=== PATIENT | female | born 1950 | race Caucasian/White ===

== ENCOUNTER → 2017-01-20 | Outpatient (CLI) | payer MEDICARE, BC ==
--- NOTE | 2017-01-20 16:24 | BD ---
EXAMINATION TYPE: MG DEXA axial skeleton. DATE OF EXAM: 01/20/2017 COMPARISON: NONE CLINICAL HISTORY: 66-year-old female postmenopausal screening Height: 5 FT 3 IN Weight: 133 FRAX RISK QUESTIONS: Alcohol (3 or more units per day): NO Family History (Parent hip fracture): NO Glucocorticoids (More than 3mos): YES (Ex: prednisone, prednisolone, methylprednisolone, dexamethasone, and hydrocortisone). History of Fracture in Adulthood: NO Secondary Osteoporosis: 1. Type 1 Diabetes: NO 2. Hyperthyroidism: NO 3. Menopause before 45: NO 4. Malnutrition: NO 5. Chronic liver disease: NO Rheumatoid Arthritis: NO Current Tobacco Use: NO RISK FACTORS HISTORY OF: Active: YES Postmenopausal woman: AGE 50 MEDICATIONS: Prednisone or other steroids: YES How Lon TRANSPLANT PT Thyroid Medications: YES Which medication: SYNTHROID How Lon YRS Additional Medications: SYNTHROID, INSULIN, PREDISONE , ,CELCEPT, SIMVASTATIN, METOPROLOL, SYNTH YOAN , LEAVEMIR,VIT D, GLIMEPIRIDE, WARFARIN,CEPHALEXIN Additional History: KIDNEY TRANSPLANT 2011 AND 1995 EXAM MEASUREMENTS: Bone mineral densitometry was performed using the Influx System. Bone mineral density as measured about the Lumbar spine is: ----- L1-L4(G/cm2): 1.315 T Score Values are as follows: ----- L2: 1.0 ----- L3: 1.5 ----- L4: 2.1 ----- L1-L4: 1.1 BASELINE Bone mineral density about the R hip (g/cm2): 0.729 Bone mineral density about the L hip (g/cm2): 0.671 T Score values are as follows: -----R Neck: -2.2 -----L Neck: -2.6 -----R Total: -2.2 -----L Total: -2.5 BASELINE IMPRESSION: Osteoporosis (T Score less than -2.5) as noted by T Score values at the There is increased fracture risk and therapy is usually indicated based on age. Re-Screen 1-2 years. NOTE: T-SCORE=SD OF THE YOUNG ADULT MEAN.
--- NOTE | 2017-01-21 07:34 | MM ---
Reason for exam: screening (asymptomatic). Last mammogram was performed 3 years and 10 months ago. History: Patient is postmenopausal. Physical Findings: A clinical breast exam by your physician is recommended on an annual basis and results should be correlated with mammographic findings. MG 3D Screening Mammo W/Cad Bilateral CC and MLO view(s) were taken. Prior study comparison: April 05, 2013, bilateral digital screening mammo w/CAD. The breast tissue is extremely dense which could obscure a lesion on mammography. Finding: There are typically benign calcifications in both breasts. No suspicious abnormality. ASSESSMENT: Benign, BI-RAD 2 RECOMMENDATION: Routine screening mammogram of both breasts in 1 year.
== END | disposition home or self-care (01) ==
LOC: RADMAMWWP 09:50
PROVIDERS: ATTEND Family Medicine
DX: Z12.31 Encounter for screening mammogram for malignant neoplasm of breast (principal); M81.0 Age-related osteoporosis without current pathological fracture; Z78.0 Asymptomatic menopausal state
CPT/HCPCS: 77080; 77063; G0202

== ENCOUNTER → 2017-01-20 | Outpatient (CLI) | payer MEDICARE, BC ==
[2017-01-20 10:45] LABS: Basophils # (A) 0.1 k/uL (0-0.2); Basophils % (A) 1 %; CH 26.4; CHCM 29.9; Eosinophils # (A) 0.3 k/uL (0-0.7); Eosinophils % (A) 4 %; HCT 43.1 % (34.0-46.0); HDW 2.14; HGB 12.8 gm/dL (11.4-16.0); Hypochromasia Moderate; Luc # (Auto) 0.27; Luc % (Auto) 3; Lymphocytes # (A) 2.1 k/uL (1.0-4.8); Lymphocytes % (A) 27 %; MCH 26.3 pg (25.0-35.0); MCHC 29.7 g/dL (31.0-37.0); MCV 88.7 fL (80.0-100.0); Mean Platelet Volume 6.6; Monocytes # (A) 0.4 k/uL (0-1.0); Monocytes % (A) 6 %; Neutrophils # (A) 4.6 k/uL (1.3-7.7); Neutrophils % (A) 60 %; RBC 4.85 m/uL (3.80-5.40); RDW 13.7 % (11.5-15.5); WBC 7.8 k/uL (3.8-10.6); WBC (Perox) 7.77
[2017-01-20 10:59] LABS: Anion Gap 12 mmol/L; Blood Urea Nitrogen 26 mg/dL (7-17); Calcium 10.5 mg/dL (8.4-10.2); Carbon Dioxide 29 mmol/L (22-30); Chloride 98 mmol/L (98-107); Glucose 179 mg/dL (74-99); Non-African American GFR(MDRD) >60 (>60 ml/min/1.73 sqM); Phosphorous 3.9 mg/dL (2.5-4.5); Potassium 5.4 mmol/L (3.5-5.1); Sodium 139 mmol/L (137-145); Uric Acid 6.3 mg/dL (3.7-7.4)
[2017-01-20 11:05] LABS: Appearance,Urine Clear (Clear); Bacteria,Urine Rare /hpf; Bilirubin,Urine Negative (Negative); Glucose,Urine (UA) Negative (Negative); Ketones,Urine Negative (Negative); Leukocyte Esterase,Urine Small (Negative); Mucus,Urine Rare /hpf; Nitrite,Urine Negative (Negative); Particle Count 707; Protein,Urine 2+ (Negative); RBC,Urine <1 /hpf (0-5); Specific Gravity,Urine 1.008 (1.001-1.035); Squamous Epithelial Cell,Urine <1 /hpf (0-4); UA Billing (MACRO vs. MICRO) MICRO; Urobilinogen,Urine <2.0 mg/dL (<2.0); WBC,Urine 6 /hpf (0-5)
[2017-01-20 15:25] LABS: Iron Saturation 43.2 (12.00-45.00)
== END | disposition home or self-care (01) ==
LOC: LABWHC1 10:12
PROVIDERS: ATTEND Internal Medicine Nephrology
DX: D64.9 Anemia, unspecified (principal); E55.9 Vitamin D deficiency, unspecified; E21.3 Hyperparathyroidism, unspecified; M10.9 Gout, unspecified; Z94.0 Kidney transplant status
CPT/HCPCS: 36415; 80048; 81001; 82306; 82570; 82728; 83540; 83550; 83735; 83970; 84100; 84156; 84550; 85025

== ENCOUNTER 2017-09-08 08:30 | Inpatient (IN) | payer MEDICARE, BC ==
[2017-09-08] MEDS ORDERED: ONDANSETRON 4 MG/2 ML VIAL IVP STA (08:44)
[2017-09-08] MEDS ORDERED: SODIUM CHLORIDE 0.9% 1,000 ML IV STA ×3 (08:44→09:29)
--- NOTE | 2017-09-08 08:59 | ED ---
GI Bleed HPI - General Chief complaint: GI Bleed Stated complaint: Rectal bleeding Time Seen by Provider: 09/08/17 08:36 Source: patient, RN notes reviewed Mode of arrival: wheelchair Limitations: no limitations - History of Present Illness Initial comments: This is a 66-year-old female who is status post 2 kidney transplants diabetic and a history of a bleeding ulcer 10 years ago states she had the onset of feeling tired over last several weeks she was stopped, by her doctor, from taking statins due to muscle pain but this morning started developing red blood per rectum some nonspecific abdominal pain and upon arrival here nausea. She states she did have some chills he generally does not feel well thus far she states her last kidney is functioning well. MD complaint: gross hematochezia - Related Data Home Medications Medication Instructions Recorded Confirmed Mycophenolate Mofetil [Cellcept] 1,000 mg PO BID 01/24/15 09/08/17 Simvastatin [Zocor] 40 mg PO HS 01/24/15 09/08/17 Warfarin Sodium 4 mg PO SUTUTHSA 01/24/15 09/08/17 predniSONE 5 mg PO DAILY 01/24/15 09/08/17 Insulin Detemir [Levemir] 30 unit SQ HS 11/18/15 09/08/17 Levothyroxine Sodium [Synthroid] 200 mcg PO DAILY 11/18/15 09/08/17 [place]-3 Fatty Acids/Fish Oil [Fish 1 cap PO DAILY 11/18/15 09/08/17 Oil 1,000 mg Softgel] Tacrolimus [Prograf] 1 mg PO TID 11/18/15 09/08/17 Biotin Tab 2 tab PO DAILY 12/30/15 09/08/17 Cholecalciferol [Vitamin D3] 2,000 unit PO DAILY 12/30/15 09/08/17 Warfarin Sodium 6 mg PO MOWEFR 12/30/15 09/08/17 Cranberry 400mg 400 mg PO DAILY 09/08/17 09/08/17 Insulin Aspart [NovoLOG Flexpen] 3 units SQ AC-BRKFST 09/08/17 09/08/17 Insulin Aspart [NovoLOG Flexpen] 6 units SQ AC-LUNCH 09/08/17 09/08/17 Insulin Aspart [NovoLOG Flexpen] 6 units SQ AC-SUPPER 09/08/17 09/08/17 Lisinopril [Zestril] 10 mg PO HS 09/08/17 09/08/17 Metoprolol Tartrate [Lopressor] 25 mg PO DAILY 09/08/17 09/08/17 Allergies Allergy/AdvReac Type Severity Reaction Status Date / Time No Known Allergies Allergy Verified 09/08/17 08:34 Review of Systems ROS Statement: Those systems with pertinent positive or pertinent negative responses have been documented in the HPI. ROS Other: All systems not noted in ROS Statement are negative. Past Medical History Past Medical History: Atrial Fibrillation, Diabetes Mellitus, Hyperlipidemia, Hypertension, Renal Disease, Thyroid Disorder, Vascular Disorder Additional Past Medical History / Comment(s): heart murmer, PVD, hx ulcer, anemia, C-DIFF 01-25-13, neuropathy History of Any Multi-Drug Resistant Organisms: None Reported Date of last positivie culture/infection: 01/25/13 MDRO Source:: pt denies every having cdiff Past Surgical History: Appendectomy, Section, Cholecystectomy, Heart Catheterization, Hysterectomy Additional Past Surgical History / Comment(s): kidney transplant twice right in 1995 and left in 2009, corina cataracts, laser eye surgery for glaucoma and retinopathy, aortogram 11/25/15, 12/31/15 BALOONING /ARTHRECTOMY RT LEG Past Anesthesia/Blood Transfusion Reactions: No Reported Reaction Additional Past Anesthesia/Blood Transfusion Reaction / Comment(s): Pt recieved blood in 1995 withOut reaction. Past Psychological History: No Psychological Hx Reported Smoking Status: Former smoker Past Alcohol Use History: None Reported Past Drug Use History: None Reported - Past Family History Father Family Medical History: COPD Additional Family Medical History / Comment(s): . Mother Family Medical History: Cancer Additional Family Medical History / Comment(s): .. General Exam - General Exam Comments Initial Comments: This is a well-developed well-nourished awake alert but lethargic female Limitations: no limitations General appearance: alert, lethargic Head exam: Present: atraumatic, normocephalic, normal inspection Eye exam: Present: normal appearance, PERRL, EOMI. Absent: scleral icterus, conjunctival injection, periorbital swelling ENT exam: Present: mucous membranes dry Neck exam: Present: normal inspection, full ROM. Absent: tenderness, meningismus, lymphadenopathy Respiratory exam: Present: normal lung sounds bilaterally. Absent: respiratory distress, wheezes, rales, rhonchi, stridor Cardiovascular Exam: Present: regular rate, normal rhythm, normal heart sounds. Absent: systolic murmur, diastolic murmur, rubs, gallop, clicks GI/Abdominal exam: Present: soft, tenderness (Minimal tenderness of the epigastrium. No guarding rebound masses or bruits), normal bowel sounds. Absent: distended, guarding, rebound, rigid Rectal exam: Present: heme (+) stool, other (Small a lot of burgundy-colored stool no masses) Extremities exam: Present: normal inspection, full ROM, normal capillary refill. Absent: tenderness, pedal edema, joint swelling, calf tenderness Back exam: Present: normal inspection Neurological exam: Present: alert, oriented X3, CN II-XII intact Psychiatric exam: Present: normal affect, normal mood Skin exam: Present: warm, dry, intact, normal color. Absent: rash Course Vital Signs 09/08/17 09/08/17 09/08/17 08:32 09:21 09:51 Temperature 97.0 F L Pulse Rate 77 74 80 Respiratory 20 16 16 Rate Blood Pressure 116/51 114/49 135/52 O2 Sat by Pulse 98 96 100 Oximetry 09/08/17 09/08/17 09/08/17 10:17 10:43 10:51 Temperature Pulse Rate 94 86 88 Respiratory 16 Rate Blood Pressure 152/62 O2 Sat by Pulse 100 Oximetry 09/08/17 10:57 Temperature Pulse Rate 84 Respiratory 16 Rate Blood Pressure 108/50 O2 Sat by Pulse 100 Oximetry - Reevaluation(s) Reevaluation #1: 09/08/17 12:08 Patient was noted have a vasovagal episode apparently with syncope lasting a short period time she apparently was moving her heart rate was noted to go down into the 30s. She responded quickly to verbal stimulation. Medical Decision Making - Medical Decision Making I did discuss Pfizer the patient family patient be admitted case was discussed with Dr. Christianson - Lab Data Result diagrams: 09/08/17 09:08 09/08/17 09:08 Lab Results 09/08/17 09/08/17 09/08/17 Range/Units 09:08 09:08 09:08 WBC 8.3 (3.8-10.6) k/uL RBC 2.38 L (3.80-5.40) m/uL Hgb 6.2 L* (11.4-16.0) gm/dL Hct 21.4 L (34.0-46.0) % MCV 90.2 (80.0-100.0) fL MCH 26.1 (25.0-35.0) pg MCHC 28.9 L (31.0-37.0) g/dL RDW 14.5 (11.5-15.5) % Plt Count 302 (150-450) k/uL Neutrophils % 71 % Lymphocytes % 18 % Monocytes % 5 % Eosinophils % 2 % Basophils % 0 % Neutrophils # 5.9 (1.3-7.7) k/uL Lymphocytes # 1.5 (1.0-4.8) k/uL Monocytes # 0.4 (0-1.0) k/uL Eosinophils # 0.2 (0-0.7) k/uL Basophils # 0.0 (0-0.2) k/uL Hypochromasia Marked APTT (22.0-30.0) sec Sodium 130 L (137-145) mmol/L Potassium 6.8 H* (3.5-5.1) mmol/L Chloride 99 (98-107) mmol/L Carbon Dioxide 17 L (22-30) mmol/L Anion Gap 14 mmol/L BUN 60 H (7-17) mg/dL Creatinine 0.87 (0.52-1.04) mg/dL Est GFR (CKD-EPI)AfAm 79 (>60 ml/min/1.73 sqM) Est GFR (CKD-EPI)NonAf 69 (>60 ml/min/1.73 sqM) Glucose 636 H* (74-99) mg/dL POC Glucose (mg/dL) (75-99) mg/dL POC Glu Linen Room Custodian ID Plasma Lactic Acid Duran (0.7-2.0) mmol/L Calcium 9.3 (8.4-10.2) mg/dL Magnesium 1.8 (1.6-2.3) mg/dL Total Bilirubin 0.3 (0.2-1.3) mg/dL AST 22 (14-36) U/L ALT 32 (9-52) U/L Alkaline Phosphatase 116 (38-126) U/L Total Creatine Kinase 34 (30-135) U/L CK-MB (CK-2) <0.2 (0.0-2.4) ng/mL CK-MB (CK-2) Rel Index Troponin I <0.012 (0.000-0.034) ng/mL Total Protein 5.0 L (6.3-8.2) g/dL Albumin 3.1 L (3.5-5.0) g/dL Lipase 183 (23-300) U/L Stool Occult Blood (Negative) Acetone, Qual (Negative) Blood Type Blood Type Recheck Antibody Screen Crossmatch Spec Expiration Date 09/08/17 09/08/17 09/08/17 Range/Units 09:08 09:08 09:08 WBC (3.8-10.6) k/uL RBC (3.80-5.40) m/uL Hgb (11.4-16.0) gm/dL Hct (34.0-46.0) % MCV (80.0-100.0) fL MCH (25.0-35.0) pg MCHC (31.0-37.0) g/dL RDW (11.5-15.5) % Plt Count (150-450) k/uL Neutrophils % % Lymphocytes % % Monocytes % % Eosinophils % % Basophils % % Neutrophils # (1.3-7.7) k/uL Lymphocytes # (1.0-4.8) k/uL Monocytes # (0-1.0) k/uL Eosinophils # (0-0.7) k/uL Basophils # (0-0.2) k/uL Hypochromasia APTT 34.6 H (22.0-30.0) sec Sodium (137-145) mmol/L Potassium (3.5-5.1) mmol/L Chloride (98-107) mmol/L Carbon Dioxide (22-30) mmol/L Anion Gap mmol/L BUN (7-17) mg/dL Creatinine (0.52-1.04) mg/dL Est GFR (CKD-EPI)AfAm (>60 ml/min/1.73 sqM) Est GFR (CKD-EPI)NonAf (>60 ml/min/1.73 sqM) Glucose (74-99) mg/dL POC Glucose (mg/dL) (75-99) mg/dL POC Glu Linen Room Custodian ID Plasma Lactic Acid Duran 1.4 (0.7-2.0) mmol/L Calcium (8.4-10.2) mg/dL Magnesium (1.6-2.3) mg/dL Total Bilirubin (0.2-1.3) mg/dL AST (14-36) U/L ALT (9-52) U/L Alkaline Phosphatase (38-126) U/L Total Creatine Kinase (30-135) U/L CK-MB (CK-2) (0.0-2.4) ng/mL CK-MB (CK-2) Rel Index Troponin I (0.000-0.034) ng/mL Total Protein (6.3-8.2) g/dL Albumin (3.5-5.0) g/dL Lipase (23-300) U/L Stool Occult Blood (Negative) Acetone, Qual (Negative) Blood Type O Positive Blood Type Recheck No Antibody Screen NEGATIVE Crossmatch See Detail Spec Expiration Date 09/11/2017 - 230709/08/17 09/08/17 09/08/17 Range/Units 09:08 09:25 09:25 WBC (3.8-10.6) k/uL RBC (3.80-5.40) m/uL Hgb (11.4-16.0) gm/dL Hct (34.0-46.0) % MCV (80.0-100.0) fL MCH (25.0-35.0) pg MCHC (31.0-37.0) g/dL RDW (11.5-15.5) % Plt Count (150-450) k/uL Neutrophils % % Lymphocytes % % Monocytes % % Eosinophils % % Basophils % % Neutrophils # (1.3-7.7) k/uL Lymphocytes # (1.0-4.8) k/uL Monocytes # (0-1.0) k/uL Eosinophils # (0-0.7) k/uL Basophils # (0-0.2) k/uL Hypochromasia APTT (22.0-30.0) sec Sodium (137-145) mmol/L Potassium (3.5-5.1) mmol/L Chloride (98-107) mmol/L Carbon Dioxide (22-30) mmol/L Anion Gap mmol/L BUN (7-17) mg/dL Creatinine (0.52-1.04) mg/dL Est GFR (CKD-EPI)AfAm (>60 ml/min/1.73 sqM) Est GFR (CKD-EPI)NonAf (>60 ml/min/1.73 sqM) Glucose (74-99) mg/dL POC Glucose (mg/dL) >600 H >600 H (75-99) mg/dL POC Glu Linen Room Custodian ID Wiseheart, Natasha Wiseheart, Natasha Plasma Lactic Acid Duran (0.7-2.0) mmol/L Calcium (8.4-10.2) mg/dL Magnesium (1.6-2.3) mg/dL Total Bilirubin (0.2-1.3) mg/dL AST (14-36) U/L ALT (9-52) U/L Alkaline Phosphatase (38-126) U/L Total Creatine Kinase (30-135) U/L CK-MB (CK-2) (0.0-2.4) ng/mL CK-MB (CK-2) Rel Index Troponin I (0.000-0.034) ng/mL Total Protein (6.3-8.2) g/dL Albumin (3.5-5.0) g/dL Lipase (23-300) U/L Stool Occult Blood (Negative) Acetone, Qual Positive (Negative) Blood Type Blood Type Recheck Antibody Screen Crossmatch Spec Expiration Date 09/08/17 09/08/17 09/08/17 Range/Units 09:56 10:36 10:37 WBC (3.8-10.6) k/uL RBC (3.80-5.40) m/uL Hgb (11.4-16.0) gm/dL Hct (34.0-46.0) % MCV (80.0-100.0) fL MCH (25.0-35.0) pg MCHC (31.0-37.0) g/dL RDW (11.5-15.5) % Plt Count (150-450) k/uL Neutrophils % % Lymphocytes % % Monocytes % % Eosinophils % % Basophils % % Neutrophils # (1.3-7.7) k/uL Lymphocytes # (1.0-4.8) k/uL Monocytes # (0-1.0) k/uL Eosinophils # (0-0.7) k/uL Basophils # (0-0.2) k/uL Hypochromasia APTT (22.0-30.0) sec Sodium (137-145) mmol/L Potassium (3.5-5.1) mmol/L Chloride (98-107) mmol/L Carbon Dioxide (22-30) mmol/L Anion Gap mmol/L BUN (7-17) mg/dL Creatinine (0.52-1.04) mg/dL Est GFR (CKD-EPI)AfAm (>60 ml/min/1.73 sqM) Est GFR (CKD-EPI)NonAf (>60 ml/min/1.73 sqM) Glucose (74-99) mg/dL POC Glucose (mg/dL) >600 H >600 H (75-99) mg/dL POC Glu Linen Room Custodian ID Wiseheart, Natasha Wiseheart, Natasha Plasma Lactic Acid Duran (0.7-2.0) mmol/L Calcium (8.4-10.2) mg/dL Magnesium (1.6-2.3) mg/dL Total Bilirubin (0.2-1.3) mg/dL AST (14-36) U/L ALT (9-52) U/L Alkaline Phosphatase (38-126) U/L Total Creatine Kinase (30-135) U/L CK-MB (CK-2) (0.0-2.4) ng/mL CK-MB (CK-2) Rel Index Troponin I (0.000-0.034) ng/mL Total Protein (6.3-8.2) g/dL Albumin (3.5-5.0) g/dL Lipase (23-300) U/L Stool Occult Blood Positive H (Negative) Acetone, Qual (Negative) Blood Type Blood Type Recheck Antibody Screen Crossmatch Spec Expiration Date 09/08/17 Range/Units 11:37 WBC (3.8-10.6) k/uL RBC (3.80-5.40) m/uL Hgb (11.4-16.0) gm/dL Hct (34.0-46.0) % MCV (80.0-100.0) fL MCH (25.0-35.0) pg MCHC (31.0-37.0) g/dL RDW (11.5-15.5) % Plt Count (150-450) k/uL Neutrophils % % Lymphocytes % % Monocytes % % Eosinophils % % Basophils % % Neutrophils # (1.3-7.7) k/uL Lymphocytes # (1.0-4.8) k/uL Monocytes # (0-1.0) k/uL Eosinophils # (0-0.7) k/uL Basophils # (0-0.2) k/uL Hypochromasia APTT (22.0-30.0) sec Sodium (137-145) mmol/L Potassium (3.5-5.1) mmol/L Chloride (98-107) mmol/L Carbon Dioxide (22-30) mmol/L Anion Gap mmol/L BUN (7-17) mg/dL Creatinine (0.52-1.04) mg/dL Est GFR (CKD-EPI)AfAm (>60 ml/min/1.73 sqM) Est GFR (CKD-EPI)NonAf (>60 ml/min/1.73 sqM) Glucose (74-99) mg/dL POC Glucose (mg/dL) 598 H (75-99) mg/dL POC Glu Linen Room Custodian ID Kallie Ngo Plasma Lactic Acid Duran (0.7-2.0) mmol/L Calcium (8.4-10.2) mg/dL Magnesium (1.6-2.3) mg/dL Total Bilirubin (0.2-1.3) mg/dL AST (14-36) U/L ALT (9-52) U/L Alkaline Phosphatase (38-126) U/L Total Creatine Kinase (30-135) U/L CK-MB (CK-2) (0.0-2.4) ng/mL CK-MB (CK-2) Rel Index Troponin I (0.000-0.034) ng/mL Total Protein (6.3-8.2) g/dL Albumin (3.5-5.0) g/dL Lipase (23-300) U/L Stool Occult Blood (Negative) Acetone, Qual (Negative) Blood Type Blood Type Recheck Antibody Screen Crossmatch Spec Expiration Date - Radiology Data Radiology results: report reviewed (Evidence a left basilar atelectasis in light of the patient being afebrile and normal white count less likely this is an infiltrate.), image reviewed Critical Care Time Critical Care Time: Yes Critical Care Time: 43 minutes of critical care time which includes the patient with history physical labs x-rays several reevaluation of the patient discussed with the patient family regarding findings discussed with the admitting physician admission orders and documentation of the above Disposition Clinical Impression: GI bleeding, Hematochezia, Diabetic ketoacidosis, Anemia, Vasovagal episode Disposition: ADMITTED IP TO THIS [facility] Condition: Serious Referrals: Quynh Mcguire MD [Primary Care Provider] - 1-2 days
[2017-09-08 09:29] LABS: Basophils % (A) 0 %; Eosinophils # (A) 0.2 k/uL (0-0.7); Eosinophils % (A) 2 %; HCT 21.4 % (34.0-46.0); Hypochromasia Marked; Lymphocytes # (A) 1.5 k/uL (1.0-4.8); Lymphocytes % (A) 18 %; MCH 26.1 pg (25.0-35.0); MCHC 28.9 g/dL (31.0-37.0); MCV 90.2 fL (80.0-100.0); Monocytes # (A) 0.4 k/uL (0-1.0); Monocytes % (A) 5 %; Neutrophils # (A) 5.9 k/uL (1.3-7.7); Neutrophils % (A) 71 %; Platelet Count 302 k/uL (150-450); RBC 2.38 m/uL (3.80-5.40); RDW 14.5 % (11.5-15.5); WBC 8.3 k/uL (3.8-10.6)
[2017-09-08 09:30] LABS: Glucose,Whole Blood >600 mg/dL (75-99)
[2017-09-08 09:34] LABS: Albumin 3.1 g/dL (3.5-5.0); Calcium 9.3 mg/dL (8.4-10.2); Magnesium 1.8 mg/dL (1.6-2.3); Total Bilirubin 0.3 mg/dL (0.2-1.3)
[2017-09-08 09:35] LABS: HGB 6.2 gm/dL (11.4-16.0)
[2017-09-08 09:44] LABS: Potassium 6.8 mmol/L (3.5-5.1)
[2017-09-08 09:56] LABS: Creatine Kinase 34 U/L (30-135)
[2017-09-08 10:08] LABS: Creatine Kinase MB <0.2 ng/mL (0.0-2.4); Troponin I <0.012 ng/mL (0.000-0.034)
--- NOTE | 2017-09-08 10:10 | XR ---
EXAMINATION TYPE: XR abdomen acute w cxr DATE OF EXAM: 09/08/2017 CLINICAL HISTORY: Diarrhea and blood in stool. Pain. TECHNIQUE: Single frontal view of chest is obtained. Supine and upright views of the abdomen are acq uired. COMPARISON: Chest x-ray January 24, 2015. CT abdomen and pelvis January 24, 2015. FINDINGS: There is chronic parenchymal change with new patchy left basilar opacity difficult to exclu de as there is some silhouetting of left heart border. Right lung is clear. No pleural effusion or pn eumothorax seen bilaterally. Cardiac silhouette size appears within normal limits. Osseous structur es remain demineralized. Gas is noted in nondistended small bowel loops. Scattered gas is seen in nondistended colon. Extensiv e Vascular calcification overlies lower abdomen to pelvis and bilateral groin. No pneumoperitoneum is seen. Osseous structures are intact. IMPRESSION: 1. Chronic changes with possible developing patchy left basilar atelectasis and/or infiltrate. Consid er progress two-view chest x-ray. 2. Overall nonspecific but likely nonobstructive bowel gas pattern.
[2017-09-08] MEDS ORDERED: INSULIN REGULAR 100 UNIT/ML VIAL IV ONE (10:29)
[2017-09-08] MEDS ORDERED: ALBUTEROL NEBULIZED 2.5 MG/3 ML INHALATION STA (10:29)
[2017-09-08 10:44] LABS: Glucose,Whole Blood >600 mg/dL (75-99)
[2017-09-08 10:44] LABS: Glucose,Whole Blood >600 mg/dL (75-99)
[2017-09-08 11:40] LABS: Glucose,Whole Blood 598 mg/dL (75-99)
[2017-09-08] MEDS ORDERED: NALOXONE 0.4 MG/ML 1 ML VIAL IV PRN (12:23)
[2017-09-08] MEDS ORDERED: INSULIN REGULAR BOLUS (FROM DRIP BAG) IV ONE (12:27)
[2017-09-08] MEDS ORDERED: Potassium Replacement Protocol 1 EACH MISC MISCELLANE PRN (12:27)
[2017-09-08] MEDS ORDERED: Magnesium Replacement Protocol 1 EACH MISC MISCELLANE PRN ×2 (12:27→16:29)
[2017-09-08] MEDS: INSULIN REGULAR 100 UNIT in SODIUM CHLORIDE 0.9% 100 ML IV SCH (13:26)
[2017-09-08 13:31] LABS: Glucose,Whole Blood 519 mg/dL (75-99)
[2017-09-08 13:49] LABS: Glucose,Whole Blood 500 mg/dL (75-99)
[2017-09-08] MEDS: SODIUM CHLORIDE 0.9% 1,000 ML IV SCH ×4 (13:56→19:15)
[2017-09-08 14:09] VITALS: BMI 22.3
[2017-09-08] MEDS ORDERED: SODIUM CHLORIDE 0.9% 1,000 ML IV ONE ×2 (14:09→14:11)
[2017-09-08 14:36] LABS: INR 2.6 (<1.2); Prothrombin Time 23.6 sec (9.0-12.0)
[2017-09-08] MEDS ORDERED: PHYTONADIONE 5 MG in SODIUM CHLORIDE 0.9% 50 ML IVPB STA (14:46)
[2017-09-08 14:53] LABS: Glucose,Whole Blood 397 mg/dL (75-99)
[2017-09-08 15:07] LABS: HCT 22.1 % (34.0-46.0); Hypochromasia Moderate; MCH 27.5 pg (25.0-35.0); MCHC 31.2 g/dL (31.0-37.0); MCV 88.3 fL (80.0-100.0); Mean Platelet Volume 7.2; Platelet Count 281 k/uL (150-450); RDW 14.6 % (11.5-15.5); WBC 8.9 k/uL (3.8-10.6)
[2017-09-08 15:09] LABS: HGB 6.9 gm/dL (11.4-16.0)
--- NOTE | 2017-09-08 15:20 | P.HPIM ---
History of Present Illness H&P Date: 09/08/17 Chief Complaint: GI bleed 66 years old female patient of Dr. Johns past medical history of atrial fibrillation, type 2 diabetes, hyperlipidemia, hypertension and history of renal transplant times 06/13/1995 and 2009, thyroid disorder peripheral vascular disorder, history of peptic ulcer disease 10 years ago comes in with feeling of tiredness past several weeks. Patient was seen by Dr. Johns and myself arm in the clinic where she was complaining of some bilateral hip pain associated with anterior high pain. Simvastatin was discontinued for concern of myositis. Patient states it did not improve her muscle aches. She states she's been having diarrhea for the past few weeks but today she had bright red blood through the rectum with increasing blood sugars with no improvement on taking insulin. Patient came to ER and was found to have a glucose of 600 and hemoglobin of 6.2 a drop from 12. INR 2.6, potassium 6.8, normal troponin fecal occult positive acetone positive normal LFTs. During evaluation ED patient had a presyncope event. Her heart rate dropped into the low 30s. Patient was admitted to the ICU. She received 1 L of IV fluid in the ER. Evidently ordered another 2 L of IV fluid to correct diabetes ketoacidosis. 1 unit of PRBC ordered. Repeat hemoglobin checked later during the evening evening. I think patient would benefit from a dose of calcium gluconate as patient has hyperlipidemia with an episode of bradycardia. Repeat CBC, CMP, magnesium. Vitals are stable with blood pressure of 117/70. Protonix 40 IV twice a day. INR 2 with reverse with vitamin K 5 mg. Hold Coumadin Review of Systems Constitutional: Denies chills, Denies fever, endorses lethargy, endorses malaise, Denies poor appetite, Denies weakness, Denies weight loss Eyes: denies decreased vision, denies diplopia, denies discharge, denies pain Ears: deny: decreased hearing Ears, nose, mouth and throat: Denies dental pain, Denies headache, Denies nasal discharge, Denies nose pain Cardiovascular: Denies chest pain, Denies decreased exercise tolerance, Denies edema, Denies high blood pressure, Denies irregular heart beat, Denies palpitations, Denies paroxysmal nocturnal dyspnea, Denies rapid heart beat, Denies shortness of breath Respiratory: Denies congestion, Denies cough, Denies cough with sputum, Denies dyspnea, Denies home oxygen, Denies wheezing Gastrointestinal: Endorses abdominal pain, endorses diarrhea Denies change in bowel habits, Denies coffee ground emesis, Denies early satiety, Denies excessive gas, Denies heartburn, Denies hematemesis, endorses hematochezia, Denies loss of appetite, Denies nausea, Denies vomiting Genitourinary: Denies dysuria, Denies flank pain, Denies kidney stones, Denies menorrhagia, Denies urgency, Denies urinary frequency Musculoskeletal: Denies gait dysfunction, Denies limitation of motion, Denies morning stiffness, Denies muscle cramps Integumentary: Denies rash, Denies wounds, Denies brittle nails, Denies change in hair/nails, Denies darkening of skin Neurological: Denies balance difficulties, Denies change in speech, Denies double vision, Denies gait dysfunction, Denies loss of vision, Denies motor disturbance, Denies numbness, Denies paralysis, Denies paresthesias, Denies seizures Psychiatric: Denies anxiety, Denies depression Endocrine: Denies excessive sweating, Denies excessive thirst, Denies high blood sugars, Denies palpitations Hematologic/Lymphatic: Denies easy bruising, Denies lymphadenopathy Past Medical History Past Medical History: Atrial Fibrillation, Diabetes Mellitus, Eye Disorder, GERD /Reflux, Hyperlipidemia, Hypertension, Renal Disease, Thyroid Disorder, Vascular Disorder Additional Past Medical History / Comment(s): IDDM type II, bilateral diabetic neuropathy bilateral feet, PAD, renal failure with kidney transplant twice- prior to transplants was on hemodialysis, anemia, afib once in her life associated with an illness, murmur, PUD-bleeding many years ago, bilateral eyes glaucoma and diabetic retinopathy, frequent UTIs-daily antibiiotic use, hypothyroid. History of Any Multi-Drug Resistant Organisms: None Reported Date of last positivie culture/infection: 01/25/13 MDRO Source:: pt denies every having cdiff Past Surgical History: Appendectomy, Section, Cholecystectomy, Heart Catheterization, Hysterectomy Additional Past Surgical History / Comment(s): kidney transplant twice right in 1995 and left in 2009, corina cataracts with lens implants, laser eye surgery for glaucoma and retinopathy, aortogram 11/25/15, 12/31/15 R LEG FEMORAL POPLITEAL BALOONING /ARTHRECTOMY, COLONOSCOPY, NONFUNCTIONING HEMODIALYSIS SHUNT L ARM, Past Anesthesia/Blood Transfusion Reactions: No Reported Reaction Additional Past Anesthesia/Blood Transfusion Reaction / Comment(s): Pt recieved blood in 1995 without reaction. Smoking Status: Former smoker - Past Family History Father Family Medical History: COPD Additional Family Medical History / Comment(s): . Mother Family Medical History: Cancer Additional Family Medical History / Comment(s): Mother had melanoma Medications and Allergies Home Medications Medication Instructions Recorded Confirmed Type Mycophenolate Mofetil [Cellcept] 1,000 mg PO BID 01/24/15 09/08/17 History Simvastatin [Zocor] 40 mg PO HS 01/24/15 09/08/17 History Warfarin Sodium 4 mg PO SUTUTHSA 01/24/15 09/08/17 History predniSONE 5 mg PO DAILY 01/24/15 09/08/17 History Insulin Detemir [Levemir] 30 unit SQ HS 11/18/15 09/08/17 History Levothyroxine Sodium [Synthroid] 200 mcg PO DAILY 11/18/15 09/08/17 History [place]-3 Fatty Acids/Fish Oil [Fish 1 cap PO DAILY 11/18/15 09/08/17 History Oil 1,000 mg Softgel] Tacrolimus [Prograf] 1 mg PO TID 11/18/15 09/08/17 History Biotin Tab 2 tab PO DAILY 12/30/15 09/08/17 History Cholecalciferol [Vitamin D3] 2,000 unit PO DAILY 12/30/15 09/08/17 History Warfarin Sodium 6 mg PO MOWEFR 12/30/15 09/08/17 History Cranberry 400mg 400 mg PO DAILY 09/08/17 09/08/17 History Insulin Aspart [NovoLOG Flexpen] 3 units SQ AC-BRKFST 09/08/17 09/08/17 History Insulin Aspart [NovoLOG Flexpen] 6 units SQ AC-LUNCH 09/08/17 09/08/17 History Insulin Aspart [NovoLOG Flexpen] 6 units SQ AC-SUPPER 09/08/17 09/08/17 History Lisinopril [Zestril] 10 mg PO HS 09/08/17 09/08/17 History Metoprolol Tartrate [Lopressor] 25 mg PO DAILY 09/08/17 09/08/17 History Allergies Allergy/AdvReac Type Severity Reaction Status Date / Time No Known Allergies Allergy Verified 09/08/17 08:34 Physical Exam Vitals: Vital Signs Temp Pulse Resp BP Pulse Ox 09/08/17 14:15 87 22 106/46 100 09/08/17 14:00 90 31 H 117/70 100 09/08/17 13:30 98.5 F 87 16 108/48 100 09/08/17 13:06 97.7 F 82 16 114/56 100 09/08/17 12:36 98.0 F 87 16 111/59 100 09/08/17 12:26 97.8 F 86 16 119/45 100 09/08/17 10:57 84 16 108/50 100 09/08/17 10:51 88 09/08/17 10:43 86 09/08/17 10:17 94 16 152/62 100 09/08/17 09:51 80 16 135/52 100 09/08/17 09:21 74 16 114/49 96 09/08/17 08:32 97.0 F L 77 20 116/51 98 Intake and Output 09/08/17 09/08/17 09/08/17 06:59 14:59 22:59 Intake Total 2.678 Balance 2.678 Intake: Intake, IV Titration 2.678 Amount Insulin Regular 100 unit 2.678 In Sodium Chloride 0.9% 100 ml @ 0.1 UNITS/KG/HR 5.95 mls/hr IV .[id number] [facility] Rx#:[id number] Blood Product 0 Rc As-1 Unit 0 [id number] Other: Weight 58.967 kg - Constitutional General appearance: cooperative, no acute distress, thin-appearing - EENT Eyes: anicteric sclerae, PERRLA, normal appearance ENT: hearing grossly normal - Neck Neck: no lymphadenopathy, normal ROM, no other, no rigidity, no stridor, no thyromegaly - Respiratory Respiratory: bilateral: CTA, negative: diminished, dullness, rales, rhonchi - Cardiovascular Rhythm: regular Heart sounds: normal: S1, S2 Abnormal Heart Sounds: no systolic murmur, no diastolic murmur, no rub, no S3 Gallop, no S4 Gallop, no click, no other - Gastrointestinal General gastrointestinal: normal bowel sounds, soft, tender in the epigastric area, nondistended normal bowel sounds - Integumentary Integumentary: no rash - Neurologic Neurologic: CNII-XII intact - Musculoskeletal Musculoskeletal: strength equal bilaterally - Psychiatric Psychiatric: A&O x's 3, appropriate affect Results CBC & Chem 7: 09/08/17 09:08 09/08/17 09:08 Labs: Abnormal Lab Results - Last 24 Hours (Table) 09/08/17 09/08/17 09/08/17 Range/Units 09:08 09:08 09:08 RBC 2.38 L (3.80-5.40) m/uL Hgb 6.2 L* (11.4-16.0) gm/dL Hct 21.4 L (34.0-46.0) % MCHC 28.9 L (31.0-37.0) g/dL PT (9.0-12.0) sec INR (<1.2) APTT 34.6 H (22.0-30.0) sec Sodium 130 L (137-145) mmol/L Potassium 6.8 H* (3.5-5.1) mmol/L Carbon Dioxide 17 L (22-30) mmol/L BUN 60 H (7-17) mg/dL Glucose 636 H* (74-99) mg/dL POC Glucose (mg/dL) (75-99) mg/dL Total Protein 5.0 L (6.3-8.2) g/dL Albumin 3.1 L (3.5-5.0) g/dL Stool Occult Blood (Negative) Crossmatch 09/08/17 09/08/17 09/08/17 Range/Units 09:08 09:08 09:25 RBC (3.80-5.40) m/uL Hgb (11.4-16.0) gm/dL Hct (34.0-46.0) % MCHC (31.0-37.0) g/dL PT 23.6 H (9.0-12.0) sec INR 2.6 H (<1.2) APTT (22.0-30.0) sec Sodium (137-145) mmol/L Potassium (3.5-5.1) mmol/L Carbon Dioxide (22-30) mmol/L BUN (7-17) mg/dL Glucose (74-99) mg/dL POC Glucose (mg/dL) >600 H (75-99) mg/dL Total Protein (6.3-8.2) g/dL Albumin (3.5-5.0) g/dL Stool Occult Blood (Negative) Crossmatch See Detail 09/08/17 09/08/17 09/08/17 Range/Units 09:25 09:56 10:36 RBC (3.80-5.40) m/uL Hgb (11.4-16.0) gm/dL Hct (34.0-46.0) % MCHC (31.0-37.0) g/dL PT (9.0-12.0) sec INR (<1.2) APTT (22.0-30.0) sec Sodium (137-145) mmol/L Potassium (3.5-5.1) mmol/L Carbon Dioxide (22-30) mmol/L BUN (7-17) mg/dL Glucose (74-99) mg/dL POC Glucose (mg/dL) >600 H >600 H (75-99) mg/dL Total Protein (6.3-8.2) g/dL Albumin (3.5-5.0) g/dL Stool Occult Blood Positive H (Negative) Crossmatch 09/08/17 09/08/17 09/08/17 Range/Units 10:37 11:37 13:20 RBC (3.80-5.40) m/uL Hgb (11.4-16.0) gm/dL Hct (34.0-46.0) % MCHC (31.0-37.0) g/dL PT (9.0-12.0) sec INR (<1.2) APTT (22.0-30.0) sec Sodium (137-145) mmol/L Potassium (3.5-5.1) mmol/L Carbon Dioxide (22-30) mmol/L BUN (7-17) mg/dL Glucose (74-99) mg/dL POC Glucose (mg/dL) >600 H 598 H 519 H (75-99) mg/dL Total Protein (6.3-8.2) g/dL Albumin (3.5-5.0) g/dL Stool Occult Blood (Negative) Crossmatch 09/08/17 09/08/17 Range/Units 13:47 14:51 RBC (3.80-5.40) m/uL Hgb (11.4-16.0) gm/dL Hct (34.0-46.0) % MCHC (31.0-37.0) g/dL PT (9.0-12.0) sec INR (<1.2) APTT (22.0-30.0) sec Sodium (137-145) mmol/L Potassium (3.5-5.1) mmol/L Carbon Dioxide (22-30) mmol/L BUN (7-17) mg/dL Glucose (74-99) mg/dL POC Glucose (mg/dL) 500 H 397 H (75-99) mg/dL Total Protein (6.3-8.2) g/dL Albumin (3.5-5.0) g/dL Stool Occult Blood (Negative) Crossmatch Thrombosis Risk Factor Assmnt - DVT/VTE Prophylaxis DVT/VTE Prophylaxis: Mechanical Prophylaxis ordered - Choose All That Apply Any of the Below Risk Factors Present?: Yes Other Risk Factors: Yes Each Risk Factor Represents 2 Points: Age 61-74 years Other congenital or acquired thrombophilia - If yes, enter type in comment: No Thrombosis Risk Factor Assessment Total Risk Factor Score: 2 Thrombosis Risk Factor Assessment Level: Low Risk Assessment and Plan Plan: 1. Diabetic ketoacidosis. Admit the patient to the intensive care unit, continue IV fluid resuscitation. Status post 1 L of IV fluid. I have ordered in January 2 liters of IV fluid followed by fluids at 1 25 mL per hour. Continue insulin drip per DKA protocol, switch the IV fluid to D5 half-normal saline when her blood glucose levels around 250, and transition the patient from insulin drip and to Levemir per sliding scale 2. Acute GI bleed likely secondary to peptic ulcer disease as patient has history of peptic ulcer disease with coagulopathy on Coumadin. Continue Protonix 40 mg IV twice a day. Hemoglobin every 6 hours. Status post 1 unit PRBC stop 3. Hyperkalemia status post 1 g calcium gluconate. With glucose coming down the potassium should come down as well. Repeat CMP 4. Diabetic kidney disease Status post post renal transplant: Continue Prograf and CellCept along with prednisone 5 mg a day. 5. A. fib: Patient pulse rate has been doing well. Hold warfarin due to GI bleed with PT/INR daily patient heart rate has been well controlled on metoprolol. 6. Hyperlipidemia: Continue Zocor at 40 mg daily. 7. Hypothyroidism: Continue Synthroid at 25 g daily. 8. Syncope possibly related to bradycardia or volume depletion on vasovagal. One dose of calcium gluconate given to correct hyperkalemia related membrane instability. Continue fluids 9. Coagulopathy secondary to Coumadin. Hold Coumadin due to GI bleed 10. GI prophylaxis: Patient remain on on Protonix IV for now. 11. DVT prophylaxis: Hold Coumadin. SCD 12. Full code. 13. Estimate a length of stay 3 days.
[2017-09-08 15:24] LABS: Calcium 8.6 mg/dL (8.4-10.2); Magnesium 1.6 mg/dL (1.6-2.3); Phosphorus 3.1 mg/dL (2.5-4.5)
--- NOTE | 2017-09-08 15:29 | P.CNPUL ---
History of Present Illness Consult date: 09/08/17 Requesting physician: Lizzie Christianson Reason for consult: other Chief complaint: Acute GI bleed, found blood loss anemia, acute kidney injury, hyperkalemia History of present illness: Mrs. Osorio 66-year-old white female patient of Dr. Levin who presented to the emergency department on 08/29/2017 for evaluation of a few days' history of dark stools. She states last night she noticed the stool started changing color , and became more maroon in appearance. Patient felt more fatigued and weak. She does have history of previous GI bleeding in 2007, and the EGD at that time identified a bleeding gastric ulcer. Patient is on Coumadin for history of paroxysmal atrial fibrillation, currently in sinus rhythm. Patient does have iron deficiency anemia and she is on iron supplements, and initially she was not alarmed at her dark stools relating it to her iron supplements. Other medical history includes diabetes mellitus, chronic kidney disease with history of 2 kidney transplants, one in 1995, and 2009. Her kidney transplants were from living donors. Past medical history also includes hypertension, hyperlipidemia, hypothyroidism, neuropathy, and patient is a former smoker. Lab work showed a hemoglobin of 6.2, INR of 2.6, sodium of 1:30, potassium 6.8, CO2 of 17, BUN 60, creatinine is 0.87. Serum glucose was 636, with positive serum acetone level. Troponin cardiac enzymes were negative 1, lipase was within normal limits at 183. Stool occult blood was positive. She was given 2 L of IV bolus of 0.9 normal saline in the emergency room, receiving 2 units of packed red blood cells, she was placed in the intensive care. DKA protocol sling effusion has been started. Review of Systems All systems: negative Constitutional: Denies chills, Denies fever Eyes: denies blurred vision, denies pain Ears, nose, mouth and throat: Denies headache, Denies sore throat Cardiovascular: Denies chest pain, Denies shortness of breath Respiratory: Denies cough Gastrointestinal: Reports change in bowel habits, Reports hematochezia, Denies abdominal pain, Denies diarrhea, Denies nausea, Denies vomiting Genitourinary: Denies dysuria, Denies hematuria Musculoskeletal: Denies myalgias Integumentary: Denies pruritus, Denies rash Neurological: Denies numbness, Denies weakness Psychiatric: Denies anxiety, Denies depression Endocrine: Denies fatigue, Denies weight change Past Medical History Past Medical History: Atrial Fibrillation, Diabetes Mellitus, Eye Disorder, GERD /Reflux, Hyperlipidemia, Hypertension, Renal Disease, Thyroid Disorder, Vascular Disorder Additional Past Medical History / Comment(s): IDDM type II, bilateral diabetic neuropathy bilateral feet, PAD, renal failure with kidney transplant twice- prior to transplants was on hemodialysis, anemia, afib once in her life associated with an illness, murmur, PUD-bleeding many years ago, bilateral eyes glaucoma and diabetic retinopathy, frequent UTIs-daily antibiiotic use, hypothyroid. History of Any Multi-Drug Resistant Organisms: None Reported Date of last positivie culture/infection: 01/25/13 MDRO Source:: pt denies every having cdiff Past Surgical History: Appendectomy, Section, Cholecystectomy, Heart Catheterization, Hysterectomy Additional Past Surgical History / Comment(s): kidney transplant twice right in 1995 and left in 2009, corina cataracts with lens implants, laser eye surgery for glaucoma and retinopathy, aortogram 11/25/15, 12/31/15 R LEG FEMORAL POPLITEAL BALOONING /ARTHRECTOMY, COLONOSCOPY, NONFUNCTIONING HEMODIALYSIS SHUNT L ARM, Past Anesthesia/Blood Transfusion Reactions: No Reported Reaction Additional Past Anesthesia/Blood Transfusion Reaction / Comment(s): Pt recieved blood in 1995 without reaction. Smoking Status: Former smoker - Past Family History Father Family Medical History: COPD Additional Family Medical History / Comment(s): . Mother Family Medical History: Cancer Additional Family Medical History / Comment(s): Mother had melanoma Medications and Allergies Home Medications Medication Instructions Recorded Confirmed Type Mycophenolate Mofetil [Cellcept] 1,000 mg PO BID 01/24/15 09/08/17 History Simvastatin [Zocor] 40 mg PO HS 01/24/15 09/08/17 History Warfarin Sodium 4 mg PO SUTUTHSA 01/24/15 09/08/17 History predniSONE 5 mg PO DAILY 01/24/15 09/08/17 History Insulin Detemir [Levemir] 30 unit SQ HS 11/18/15 09/08/17 History Levothyroxine Sodium [Synthroid] 200 mcg PO DAILY 11/18/15 09/08/17 History [place]-3 Fatty Acids/Fish Oil [Fish 1 cap PO DAILY 11/18/15 09/08/17 History Oil 1,000 mg Softgel] Tacrolimus [Prograf] 1 mg PO TID 11/18/15 09/08/17 History Biotin Tab 2 tab PO DAILY 12/30/15 09/08/17 History Cholecalciferol [Vitamin D3] 2,000 unit PO DAILY 12/30/15 09/08/17 History Warfarin Sodium 6 mg PO MOWEFR 12/30/15 09/08/17 History Cranberry 400mg 400 mg PO DAILY 09/08/17 09/08/17 History Insulin Aspart [NovoLOG Flexpen] 3 units SQ AC-BRKFST 09/08/17 09/08/17 History Insulin Aspart [NovoLOG Flexpen] 6 units SQ AC-LUNCH 09/08/17 09/08/17 History Insulin Aspart [NovoLOG Flexpen] 6 units SQ AC-SUPPER 09/08/17 09/08/17 History Lisinopril [Zestril] 10 mg PO HS 09/08/17 09/08/17 History Metoprolol Tartrate [Lopressor] 25 mg PO DAILY 09/08/17 09/08/17 History Allergies Allergy/AdvReac Type Severity Reaction Status Date / Time No Known Allergies Allergy Verified 09/08/17 08:34 Physical Exam Vitals: Vital Signs Temp Pulse Resp BP Pulse Ox 09/08/17 14:15 87 22 106/46 100 09/08/17 14:00 90 31 H 117/70 100 09/08/17 13:30 98.5 F 87 16 108/48 100 09/08/17 13:06 97.7 F 82 16 114/56 100 09/08/17 12:36 98.0 F 87 16 111/59 100 09/08/17 12:26 97.8 F 86 16 119/45 100 09/08/17 10:57 84 16 108/50 100 09/08/17 10:51 88 09/08/17 10:43 86 09/08/17 10:17 94 16 152/62 100 09/08/17 09:51 80 16 135/52 100 09/08/17 09:21 74 16 114/49 96 09/08/17 08:32 97.0 F L 77 20 116/51 98 Intake and Output 09/08/17 09/08/17 09/08/17 06:59 14:59 22:59 Intake Total 2.678 Balance 2.678 Intake: Intake, IV Titration 2.678 Amount Insulin Regular 100 unit 2.678 In Sodium Chloride 0.9% 100 ml @ 0.1 UNITS/KG/HR 5.95 mls/hr IV .[id number] [facility] Rx#:[id number] Blood Product 0 Rc As-1 Unit 0 [id number] Other: Weight 58.967 kg GENERAL EXAM: Alert, pleasant 66-year-old white female, comfortable in no apparent distress. HEAD: Normocephalic/atraumatic. EYES: Normal reaction of pupils, equal size. Conjunctiva pink, sclera white. NOSE: Clear with pink turbinates. THROAT: No erythema or exudates. NECK: No masses, no JVD, no thyroid enlargement, no adenopathy. CHEST: No chest wall deformity. Symmetrical expansion. LUNGS: Equal air entry with no crackles, wheeze, rhonchi or dullness. CVS: Regular rate and rhythm, normal S1 and S2, no gallops, no murmurs, no rubs ABDOMEN: Soft, nontender. No hepatosplenomegaly, normal bowel sounds, no guarding or rigidity. EXTREMITIES: No clubbing, no edema, no cyanosis, 2+ pulses and upper and lower extremities. MUSCULOSKELETAL: Muscle strength and tone normal. SPINE: No scoliosis or deformity SKIN: No rashes CENTRAL NERVOUS SYSTEM: Alert and oriented -3. No focal deficits, tone is normal in all 4 extremities. PSYCHIATRIC: Alert and oriented -3. Appropriate affect. Intact judgment and insight. Results - Laboratory Findings CBC and BMP: 09/08/17 09:08 09/08/17 09:08 PT/INR, D-dimer PT 23.6 sec (9.0-12.0) H 09/08/17 09:08 INR 2.6 (<1.2) H 09/08/17 09:08 Abnormal lab findings: Abnormal Labs 09/08/17 09/08/17 09/08/17 09:08 09:08 09:08 RBC 2.38 L Hgb 6.2 L* Hct 21.4 L MCHC 28.9 L PT INR APTT 34.6 H Sodium 130 L Potassium 6.8 H* Carbon Dioxide 17 L BUN 60 H Glucose 636 H* POC Glucose (mg/dL) Total Protein 5.0 L Albumin 3.1 L Stool Occult Blood Crossmatch 09/08/17 09/08/17 09/08/17 09:08 09:08 09:25 RBC Hgb Hct MCHC PT 23.6 H INR 2.6 H APTT Sodium Potassium Carbon Dioxide BUN Glucose POC Glucose (mg/dL) >600 H Total Protein Albumin Stool Occult Blood Crossmatch See Detail 09/08/17 09/08/17 09/08/17 09:25 09:56 10:36 RBC Hgb Hct MCHC PT INR APTT Sodium Potassium Carbon Dioxide BUN Glucose POC Glucose (mg/dL) >600 H >600 H Total Protein Albumin Stool Occult Blood Positive H Crossmatch 09/08/17 09/08/17 09/08/17 10:37 11:37 13:20 RBC Hgb Hct MCHC PT INR APTT Sodium Potassium Carbon Dioxide BUN Glucose POC Glucose (mg/dL) >600 H 598 H 519 H Total Protein Albumin Stool Occult Blood Crossmatch 09/08/17 09/08/17 13:47 14:51 RBC Hgb Hct MCHC PT INR APTT Sodium Potassium Carbon Dioxide BUN Glucose POC Glucose (mg/dL) 500 H 397 H Total Protein Albumin Stool Occult Blood Crossmatch - Diagnostic Findings Additional studies: Acute abdominal series and EKG reviewed Assessment and Plan Plan: Assessment: #1. Acute blood loss anemia, secondary to acute GI bleeding, patient presented with several days of dark stools, which changed to maroon colored stools history. #2. Prerenal azotemia secondary to GI bleeding, and DKA #3. Acute hyperkalemia, secondary to acute kidney injury #4. Anion gap metabolic acidosis to continue to DKA #5. History of paroxysmal atrial fibrillation, currently sinus rhythm, on chronic anticoagulation with Coumadin. Admission INR was 2.6, we will give the patient 5 mg of vitamin K in the setting of acute GI bleeding and will hold Coumadin #6. Chronic kidney disease, status post right kidney transplant in 1995 and left kidney transplant in 2009 #7. Diabetes mellitus, with diabetic neuropathy, glaucoma and retinopathy status post laser eye surgery new #8. History of previous GI bleeding , gastric ulcer in 2007 #9. Nicotine dependence, currently in remission #10. Hypertension, hyperlipidemia #11. Hypothyroidism #12. Peripheral vascular disease Plan: Patient is being transfused with 2 units of packed red blood cells, and 2 units of 0.9 normal saline IV bolus. Insulin infusion per DKA protocol, recheck electrolytes in 4 hours. She was initiated on Protonix 40 mg twice daily IV push. GI service has been consulted. Denies any chest pain, denies any shortness of breath, hemodynamically stable. We'll give the patient 5 mg of vitamin K IV piggyback, Coumadin. Serial H&H's. Monitor for further episodes of bleeding. We'll continue to closely follow I performed a history & physical examination of the patient and discussed their management with my nurse practitioner, Amy García. I reviewed the nurse practitioner's note and agree with the documented findings and plan of care. Lung sounds are clear. The findings and the impression was discussed with the patient. I attest to the documentation by the nurse practitioner. Critical care time is over 30 minutes Time with Patient: Greater than 30
[2017-09-08 15:53] LABS: Glucose,Whole Blood 283 mg/dL (75-99)
[2017-09-08 17:11] LABS: Glucose,Whole Blood 180 mg/dL (75-99)
[2017-09-08 17:59] LABS: Glucose,Whole Blood 99 mg/dL (75-99)
[2017-09-08] MEDS: MAGNESIUM SULFATE-D5W PMX 1 GM in DEXTROSE/WATER 1 100ML.BAG IVPB SCH ×2 (18:03→22:32)
[2017-09-08 18:38] LABS: Glucose,Whole Blood 90 mg/dL (75-99)
[2017-09-08 18:56] LABS: Basophils % (A) 0 %; Eosinophils # (A) 0.1 k/uL (0-0.7); Eosinophils % (A) 1 %; Hypochromasia Slight; Lymphocytes % (A) 23 %; MCH 27.4 pg (25.0-35.0); MCHC 30.9 g/dL (31.0-37.0); MCV 88.6 fL (80.0-100.0); Mean Platelet Volume 6.9; Monocytes # (A) 0.6 k/uL (0-1.0); Monocytes % (A) 7 %; Neutrophils # (A) 5.7 k/uL (1.3-7.7); Neutrophils % (A) 65 %; Platelet Count 266 k/uL (150-450); RBC 2.93 m/uL (3.80-5.40); RDW 14.9 % (11.5-15.5); WBC 8.8 k/uL (3.8-10.6)
[2017-09-08 19:14] LABS: Glucose,Whole Blood 128 mg/dL (75-99)
[2017-09-08] MEDS: D5-0.45% NACL WITH KCL 20MEQ/L 1,000 ML IV SCH (19:15)
[2017-09-08 19:17] LABS: Calcium 8.3 mg/dL (8.4-10.2); Potassium 4.6 mmol/L (3.5-5.1)
[2017-09-08 20:02] LABS: Glucose,Whole Blood 162 mg/dL (75-99)
[2017-09-08 20:31] LABS: Appearance,Urine Clear (Clear); Bilirubin,Urine Negative (Negative); Blood,Urine Moderate (Negative); Color,Urine Colorless; Glucose,Urine (UA) 2+ (Negative); Ketones,Urine Negative (Negative); Leukocyte Esterase,Urine Negative (Negative); Mucus,Urine Rare /hpf; Nitrite,Urine Negative (Negative); PH, Urine 5.5 (5.0-8.0); Protein,Urine Negative (Negative); Specific Gravity,Urine 1.006 (1.001-1.035); Squamous Epithelial Cell,Urine <1 /hpf (0-4); Urobilinogen,Urine <2.0 mg/dL (<2.0); WBC,Urine 3 /hpf (0-5)
[2017-09-08 20:50] LABS: Glucose,Whole Blood 238 mg/dL (75-99)
[2017-09-08] MEDS: PANTOPRAZOLE 40 MG/10 ML VIAL IV SCH (21:25)
[2017-09-08 21:28] LABS: Hemoglobin A1C 8.9 % (4.0-6.0)
[2017-09-08 21:33] LABS: Glucose,Whole Blood 191 mg/dL (75-99)
[2017-09-08] MEDS ORDERED: INSULIN DETEMIR 100 UNIT/ML 10 ML VIAL SQ SCH (22:15)
[2017-09-08] MEDS ORDERED: METHYL SALICYLATE/MENTHOL CREAM 5 OZ TOPICAL PRN (22:18)
[2017-09-08 22:30] LABS: Glucose,Whole Blood 173 mg/dL (75-99)
[2017-09-08 22:52] LABS: Glucose,Whole Blood 181 mg/dL (75-99)
[2017-09-08 23:26] LABS: Glucose,Whole Blood 160 mg/dL (75-99)
[2017-09-08 23:57] LABS: Glucose,Whole Blood 137 mg/dL (75-99)
[2017-09-09 00:46] LABS: Basophils % (A) 0 %; Eosinophils # (A) 0.3 k/uL (0-0.7); Eosinophils % (A) 4 %; HCT 24.9 % (34.0-46.0); Hypochromasia Moderate; Lymphocytes % (A) 23 %; MCH 28.5 pg (25.0-35.0); MCV 88.9 fL (80.0-100.0); Mean Platelet Volume 6.9; Monocytes # (A) 0.5 k/uL (0-1.0); Monocytes % (A) 6 %; Neutrophils # (A) 5.5 k/uL (1.3-7.7); Neutrophils % (A) 64 %; Platelet Count 259 k/uL (150-450); RDW 14.8 % (11.5-15.5); WBC 8.5 k/uL (3.8-10.6)
[2017-09-09 00:50] LABS: Glucose,Whole Blood 120 mg/dL (75-99)
[2017-09-09 01:57] LABS: Glucose,Whole Blood 103 mg/dL (75-99)
[2017-09-09 03:15] LABS: Glucose,Whole Blood 80 mg/dL (75-99)
[2017-09-09 04:15] LABS: Glucose,Whole Blood 78 mg/dL (75-99)
[2017-09-09 04:36] LABS: Basophils % (A) 0 %; Eosinophils # (A) 0.3 k/uL (0-0.7); Eosinophils % (A) 4 %; HCT 24.6 % (34.0-46.0); HGB 7.7 gm/dL (11.4-16.0); Hypochromasia Moderate; Lymphocytes # (A) 1.8 k/uL (1.0-4.8); Lymphocytes % (A) 25 %; MCH 27.9 pg (25.0-35.0); MCHC 31.5 g/dL (31.0-37.0); MCV 88.4 fL (80.0-100.0); Mean Platelet Volume 7.4; Monocytes # (A) 0.4 k/uL (0-1.0); Monocytes % (A) 6 %; Neutrophils # (A) 4.4 k/uL (1.3-7.7); Neutrophils % (A) 61 %; Platelet Count 266 k/uL (150-450); RBC 2.78 m/uL (3.80-5.40); WBC 7.2 k/uL (3.8-10.6)
[2017-09-09 04:41] LABS: INR 1.3 (<1.2)
[2017-09-09 04:43] LABS: Anion Gap 8 mmol/L; Blood Urea Nitrogen 31 mg/dL (7-17); Calcium 8.5 mg/dL (8.4-10.2); Carbon Dioxide 21 mmol/L (22-30); Chloride 112 mmol/L (98-107); Glucose 74 mg/dL (74-99); Magnesium 2.1 mg/dL (1.6-2.3); Phosphorus 3.1 mg/dL (2.5-4.5); Potassium 4.7 mmol/L (3.5-5.1); Sodium 141 mmol/L (137-145)
[2017-09-09 05:13] LABS: Glucose,Whole Blood 75 mg/dL (75-99)
[2017-09-09 06:04] LABS: Glucose,Whole Blood 59 mg/dL (75-99)
[2017-09-09 06:06] LABS: Glucose,Whole Blood 63 mg/dL (75-99)
[2017-09-09] MEDS ORDERED: DEXTROSE 50%-WATER 50 ML SYRINGE IVP STA (06:08)
[2017-09-09] MEDS: LEVOTHYROXINE 100 MCG TAB PO SCH (06:10)
[2017-09-09 06:39] LABS: Glucose,Whole Blood 146 mg/dL (75-99)
[2017-09-09] MEDS: D5-0.45% NACL WITH KCL 20MEQ/L 1,000 ML IV SCH ×2 (06:50→21:16)
[2017-09-09 07:03] LABS: Glucose,Whole Blood 107 mg/dL (75-99)
[2017-09-09] MEDS ORDERED: PEG 3350-NA SULF,BICARB,CL/KCL 4,000 ML BOTTLE PO STA (07:33)
[2017-09-09 08:03] LABS: Glucose,Whole Blood 80 mg/dL (75-99)
[2017-09-09] MEDS: PANTOPRAZOLE 40 MG/10 ML VIAL IV SCH ×2 (08:44→21:14)
--- NOTE | 2017-09-09 08:55 | P.CONS ---
History of Present Illness - Reason for Consult Consult date: 09/09/17 Hematochezia Requesting physician: Lizzie Christianson - History of Present Illness 66-year-old female with history of renal transplantation 2, colonic diverticulosis, remote peptic ulcer disease more than 10 years ago, atrial fibrillation maintained on warfarin, hypertension, hyperlipidemia presented with intractable nausea vomiting and painless bloody diarrhea. No recent travels. No unusual foods or diet changes no sick contacts. Admission hemoglobin 6.2 receive 2 units of blood current hemoglobin is 7.7. MCV 90. Platelet 302. INR 2.6 received vitamin K presently 1.3. Serum glucose greater than 600. Serum acetone positive. Hemoccult stool positive. Last bloody bowel movement was yesterday. Denies hematemesis. Afebrile. Endoscopic history: No recent EGD possible EGD more than 10 years ago. Colonoscopy approximately 8 years ago out of state to her memory unremarkable. CT abdomen and pelvis in 2015 identified colonic diverticulosis. Review of Systems Constitutional: Denies fever, chills, sweats, weight gain, or loss. HEENT: Negative for migraines, blurred vision or loss, earaches, drainage, tinnitus, oral mucosal lesions, dysphagia, or odynophagia. CARDIAC: Admitted with syncopal episode. Negative for chest pain, arrhythmias, or palpitation. RESPIRATORY: Negative for shortness of breath, hemoptysis, cough, or sputum production. GI: See HPI for pertinent findings. : Negative for hematuria, urgency, frequency, polyuria, or dysuria. GYNc: Negative vaginal discharge. MUSCULOSKELETAL: Recent muscle aches in the outpatient setting. NEUROLOGIC: Negative for stroke or TIA. ENDOCRINE: Negative for thyroid problems. SKIN: Negative for rash or itching. PSYCHIATRIC: Negative history for depression and anxiety Past Medical History Past Medical History: Atrial Fibrillation, Diabetes Mellitus, Eye Disorder, GERD /Reflux, Hyperlipidemia, Hypertension, Renal Disease, Thyroid Disorder, Vascular Disorder Additional Past Medical History / Comment(s): IDDM type II, bilateral diabetic neuropathy bilateral feet, PAD, renal failure with kidney transplant twice- prior to transplants was on hemodialysis, anemia, afib once in her life associated with an illness, murmur, PUD-bleeding many years ago, bilateral eyes glaucoma and diabetic retinopathy, frequent UTIs-daily antibiiotic use, hypothyroid. History of Any Multi-Drug Resistant Organisms: None Reported Year Discovered:: 10/3/13 MDRO Source:: pt denies every having cdiff Past Surgical History: Appendectomy, Section, Cholecystectomy, Heart Catheterization, Hysterectomy Additional Past Surgical History / Comment(s): kidney transplant twice right in 1995 and left in 2009, corina cataracts with lens implants, laser eye surgery for glaucoma and retinopathy, aortogram 11/25/15, 12/31/15 R LEG FEMORAL POPLITEAL BALOONING /ARTHRECTOMY, COLONOSCOPY, NONFUNCTIONING HEMODIALYSIS SHUNT L ARM, Past Anesthesia/Blood Transfusion Reactions: No Reported Reaction Additional Past Anesthesia/Blood Transfusion Reaction / Comm: Pt recieved blood in 1995 without reaction. Smoking Status: Former smoker - Past Family History Father Family Medical History: COPD Additional Family Medical History / Comment(s): . Mother Family Medical History: Cancer Additional Family Medical History / Comment(s): Mother had melanoma Medications and Allergies Home Medications Medication Instructions Recorded Confirmed Type Mycophenolate Mofetil [Cellcept] 1,000 mg PO BID 01/24/15 09/08/17 History Simvastatin [Zocor] 40 mg PO HS 01/24/15 09/08/17 History Warfarin Sodium 4 mg PO SUTUTHSA 01/24/15 09/08/17 History predniSONE 5 mg PO DAILY 01/24/15 09/08/17 History Insulin Detemir [Levemir] 30 unit SQ HS 11/18/15 09/08/17 History Levothyroxine Sodium [Synthroid] 200 mcg PO DAILY 11/18/15 09/08/17 History [place]-3 Fatty Acids/Fish Oil [Fish 1 cap PO DAILY 11/18/15 09/08/17 History Oil 1,000 mg Softgel] Tacrolimus [Prograf] 1 mg PO TID 11/18/15 09/08/17 History Biotin Tab 2 tab PO DAILY 12/30/15 09/08/17 History Cholecalciferol [Vitamin D3] 2,000 unit PO DAILY 12/30/15 09/08/17 History Warfarin Sodium 6 mg PO MOWEFR 12/30/15 09/08/17 History Cranberry 400mg 400 mg PO DAILY 09/08/17 09/08/17 History Insulin Aspart [NovoLOG Flexpen] 3 units SQ AC-BRKFST 09/08/17 09/08/17 History Insulin Aspart [NovoLOG Flexpen] 6 units SQ AC-LUNCH 09/08/17 09/08/17 History Insulin Aspart [NovoLOG Flexpen] 6 units SQ AC-SUPPER 09/08/17 09/08/17 History Lisinopril [Zestril] 10 mg PO HS 09/08/17 09/08/17 History Metoprolol Tartrate [Lopressor] 25 mg PO DAILY 09/08/17 09/08/17 History Allergies Allergy/AdvReac Type Severity Reaction Status Date / Time No Known Allergies Allergy Verified 09/08/17 08:34 Physical Exam Vitals: Vital Signs Temp Pulse Resp BP Pulse Ox 09/09/17 06:00 79 11 L 105/53 96 09/09/17 05:00 79 12 123/54 95 09/09/17 04:00 98.7 F 74 22 98/45 95 09/09/17 03:00 76 18 101/48 98 09/09/17 02:00 82 19 98/46 94 L 09/09/17 01:00 76 22 87/46 97 09/09/17 00:00 98.7 F 81 23 110/54 94 L 09/08/17 23:00 84 12 108/47 97 09/08/17 22:03 86 10 L 105/41 97 09/08/17 22:00 86 13 105/41 97 09/08/17 21:00 89 12 115/47 99 09/08/17 20:00 99.1 F 90 16 94/46 98 09/08/17 19:00 82 19 113/50 96 09/08/17 18:00 87 19 121/53 97 09/08/17 17:15 84 18 125/58 97 09/08/17 17:00 98 F 86 28 H 125/58 99 09/08/17 16:00 98 F 87 19 117/55 100 09/08/17 15:45 86 24 117/55 98 09/08/17 15:30 85 18 106/55 97 09/08/17 15:00 88 16 118/41 100 09/08/17 14:30 98.1 F 89 18 106/46 100 09/08/17 14:15 87 22 106/46 100 09/08/17 14:00 90 18 117/70 100 09/08/17 13:30 98.5 F 87 16 108/48 100 09/08/17 13:06 97.7 F 82 16 114/56 100 09/08/17 12:36 98.0 F 87 16 111/59 100 09/08/17 12:26 97.8 F 86 16 119/45 100 09/08/17 10:57 84 16 108/50 100 09/08/17 10:51 88 09/08/17 10:43 86 09/08/17 10:17 94 16 152/62 100 09/08/17 09:51 80 16 135/52 100 09/08/17 09:21 74 16 114/49 96 09/08/17 08:32 97.0 F L 77 20 116/51 98 Intake and Output 09/08/17 09/09/17 09/09/17 22:59 06:59 14:59 Intake Total 2213.291 678.05 Output Total 600 Balance 1613.291 678.05 Intake: IV 1550 675 D5-0.45% NaCl with KCl 450 675 20Meq/l 1,000 ml @ 75 mls /hr IV .[id number] [facility] Rx#: [id number] Magnesium Sulfate-D5w Pmx 100 1 gm In Dextrose/Water 1 100ml.bag @ 100 mls/hr IVPB Q1H [facility] Rx#: [id number] Sodium Chloride 0.9% 1, 0 000 ml @ 200 mls/hr IV . Q5H [facility] Rx#:[id number] Sodium Chloride 0.9% 1, 1000 000 ml @ 999 mls/hr IV . Q1H1M [facility] Rx#:[id number] Intake, IV Titration 43.291 3.05 Amount Insulin Regular 100 unit 43.291 3.05 In Sodium Chloride 0.9% 100 ml @ 0.1 UNITS/KG/HR 5.95 mls/hr IV .[id number] [facility] Rx#:[id number] Blood Product 620 Rc As-1 Unit 310 [id number] Rc As-1 Unit 310 [id number] Output: Urine 600 Other: Voiding Method Toilet Toilet # Voids 1 1 Weight 58.9 kg General appearance: The patient is alert, oriented, in no acute distress. HET: Head is normocephalic and atraumatic. Pupils are equal and reactive. Oropharynx is clear without lesions. Neck: Supple without lymphadenopathy. Trachea midline. Heart: S1 S2. Regular rate and rhythm. Lungs: No crackles or wheezes are heard. Abdomen: Soft, nontender, nondistended with bowel sounds. No peritoneal signs. No palpable organomegaly or masses. Extremities: Normal skin color and turgor. No cyanosis, rash, ulceration, clubbing, or edema. Radial and pedal pulses are 2/4 bilaterally. Neurological: No focal deficits. Strength and sensation are grossly intact. Results CBC & Chem 7: 09/09/17 04:21 09/09/17 04:21 Labs: Abnormal Lab Results - Last 24 Hours (Table) 09/08/17 09/08/17 09/08/17 Range/Units 09:08 09:08 09:08 RBC 2.38 L (3.80-5.40) m/uL Hgb 6.2 L* (11.4-16.0) gm/dL Hct 21.4 L (34.0-46.0) % MCHC 28.9 L (31.0-37.0) g/dL PT (9.0-12.0) sec INR (<1.2) APTT 34.6 H (22.0-30.0) sec Sodium 130 L (137-145) mmol/L Potassium 6.8 H* (3.5-5.1) mmol/L Chloride (98-107) mmol/L Carbon Dioxide 17 L (22-30) mmol/L BUN 60 H (7-17) mg/dL Glucose 636 H* (74-99) mg/dL POC Glucose (mg/dL) (75-99) mg/dL Calcium (8.4-10.2) mg/dL Troponin I (0.000-0.034) ng/mL Total Protein 5.0 L (6.3-8.2) g/dL Albumin 3.1 L (3.5-5.0) g/dL Urine Glucose (UA) (Negative) Urine Blood (Negative) Urine Mucus (None) /hpf Stool Occult Blood (Negative) Crossmatch 09/08/17 09/08/17 09/08/17 Range/Units 09:08 09:08 09:25 RBC (3.80-5.40) m/uL Hgb (11.4-16.0) gm/dL Hct (34.0-46.0) % MCHC (31.0-37.0) g/dL PT 23.6 H (9.0-12.0) sec INR 2.6 H (<1.2) APTT (22.0-30.0) sec Sodium (137-145) mmol/L Potassium (3.5-5.1) mmol/L Chloride (98-107) mmol/L Carbon Dioxide (22-30) mmol/L BUN (7-17) mg/dL Glucose (74-99) mg/dL POC Glucose (mg/dL) >600 H (75-99) mg/dL Calcium (8.4-10.2) mg/dL Troponin I (0.000-0.034) ng/mL Total Protein (6.3-8.2) g/dL Albumin (3.5-5.0) g/dL Urine Glucose (UA) (Negative) Urine Blood (Negative) Urine Mucus (None) /hpf Stool Occult Blood (Negative) Crossmatch See Detail 09/08/17 09/08/17 09/08/17 Range/Units 09:25 09:56 10:36 RBC (3.80-5.40) m/uL Hgb (11.4-16.0) gm/dL Hct (34.0-46.0) % MCHC (31.0-37.0) g/dL PT (9.0-12.0) sec INR (<1.2) APTT (22.0-30.0) sec Sodium (137-145) mmol/L Potassium (3.5-5.1) mmol/L Chloride (98-107) mmol/L Carbon Dioxide (22-30) mmol/L BUN (7-17) mg/dL Glucose (74-99) mg/dL POC Glucose (mg/dL) >600 H >600 H (75-99) mg/dL Calcium (8.4-10.2) mg/dL Troponin I (0.000-0.034) ng/mL Total Protein (6.3-8.2) g/dL Albumin (3.5-5.0) g/dL Urine Glucose (UA) (Negative) Urine Blood (Negative) Urine Mucus (None) /hpf Stool Occult Blood Positive H (Negative) Crossmatch 09/08/17 09/08/1718 Range/Units 10:37 11:37 13:20 RBC (3.80-5.40) m/uL Hgb (11.4-16.0) gm/dL Hct (34.0-46.0) % MCHC (31.0-37.0) g/dL PT (9.0-12.0) sec INR (<1.2) APTT (22.0-30.0) sec Sodium (137-145) mmol/L Potassium (3.5-5.1) mmol/L Chloride (98-107) mmol/L Carbon Dioxide (22-30) mmol/L BUN (7-17) mg/dL Glucose (74-99) mg/dL POC Glucose (mg/dL) >600 H 598 H 519 H (75-99) mg/dL Calcium (8.4-10.2) mg/dL Troponin I (0.000-0.034) ng/mL Total Protein (6.3-8.2) g/dL Albumin (3.5-5.0) g/dL Urine Glucose (UA) (Negative) Urine Blood (Negative) Urine Mucus (None) /hpf Stool Occult Blood (Negative) Crossmatch 09/08/17 09/08/17 09/08/17 Range/Units 13:47 14:51 14:51 RBC 2.50 L (3.80-5.40) m/uL Hgb 6.9 L* (11.4-16.0) gm/dL Hct 22.1 L (34.0-46.0) % MCHC (31.0-37.0) g/dL PT (9.0-12.0) sec INR (<1.2) APTT (22.0-30.0) sec Sodium 135 L (137-145) mmol/L Potassium (3.5-5.1) mmol/L Chloride (98-107) mmol/L Carbon Dioxide 20 L (22-30) mmol/L BUN 52 H (7-17) mg/dL Glucose 355 H (74-99) mg/dL POC Glucose (mg/dL) 500 H (75-99) mg/dL Calcium (8.4-10.2) mg/dL Troponin I (0.000-0.034) ng/mL Total Protein (6.3-8.2) g/dL Albumin (3.5-5.0) g/dL Urine Glucose (UA) (Negative) Urine Blood (Negative) Urine Mucus (None) /hpf Stool Occult Blood (Negative) Crossmatch 09/08/17 09/08/17 09/08/17 Range/Units 14:51 15:51 17:02 RBC (3.80-5.40) m/uL Hgb (11.4-16.0) gm/dL Hct (34.0-46.0) % MCHC (31.0-37.0) g/dL PT (9.0-12.0) sec INR (<1.2) APTT (22.0-30.0) sec Sodium (137-145) mmol/L Potassium (3.5-5.1) mmol/L Chloride (98-107) mmol/L Carbon Dioxide (22-30) mmol/L BUN (7-17) mg/dL Glucose (74-99) mg/dL POC Glucose (mg/dL) 397 H 283 H 180 H (75-99) mg/dL Calcium (8.4-10.2) mg/dL Troponin I (0.000-0.034) ng/mL Total Protein (6.3-8.2) g/dL Albumin (3.5-5.0) g/dL Urine Glucose (UA) (Negative) Urine Blood (Negative) Urine Mucus (None) /hpf Stool Occult Blood (Negative) Crossmatch 09/08/17 09/08/17 09/08/17 Range/Units 18:22 18:22 19:12 RBC 2.93 L (3.80-5.40) m/uL Hgb 8.0 L (11.4-16.0) gm/dL Hct 26.0 L (34.0-46.0) % MCHC 30.9 L (31.0-37.0) g/dL PT (9.0-12.0) sec INR (<1.2) APTT (22.0-30.0) sec Sodium (137-145) mmol/L Potassium (3.5-5.1) mmol/L Chloride 112 H (98-107) mmol/L Carbon Dioxide 20 L (22-30) mmol/L BUN 43 H (7-17) mg/dL Glucose (74-99) mg/dL POC Glucose (mg/dL) 128 H (75-99) mg/dL Calcium 8.3 L (8.4-10.2) mg/dL Troponin I (0.000-0.034) ng/mL Total Protein (6.3-8.2) g/dL Albumin (3.5-5.0) g/dL Urine Glucose (UA) (Negative) Urine Blood (Negative) Urine Mucus (None) /hpf Stool Occult Blood (Negative) Crossmatch 09/08/17 09/08/17 09/08/17 Range/Units 20:00 20:10 20:48 RBC (3.80-5.40) m/uL Hgb (11.4-16.0) gm/dL Hct (34.0-46.0) % MCHC (31.0-37.0) g/dL PT (9.0-12.0) sec INR (<1.2) APTT (22.0-30.0) sec Sodium (137-145) mmol/L Potassium (3.5-5.1) mmol/L Chloride (98-107) mmol/L Carbon Dioxide (22-30) mmol/L BUN (7-17) mg/dL Glucose (74-99) mg/dL POC Glucose (mg/dL) 162 H 238 H (75-99) mg/dL Calcium (8.4-10.2) mg/dL Troponin I (0.000-0.034) ng/mL Total Protein (6.3-8.2) g/dL Albumin (3.5-5.0) g/dL Urine Glucose (UA) 2+ H (Negative) Urine Blood Moderate H (Negative) Urine Mucus Rare H (None) /hpf Stool Occult Blood (Negative) Crossmatch 09/08/17 09/08/17 09/08/17 Range/Units 21:10 21:31 22:29 RBC (3.80-5.40) m/uL Hgb (11.4-16.0) gm/dL Hct (34.0-46.0) % MCHC (31.0-37.0) g/dL PT (9.0-12.0) sec INR (<1.2) APTT (22.0-30.0) sec Sodium (137-145) mmol/L Potassium (3.5-5.1) mmol/L Chloride (98-107) mmol/L Carbon Dioxide (22-30) mmol/L BUN (7-17) mg/dL Glucose (74-99) mg/dL POC Glucose (mg/dL) 191 H 173 H (75-99) mg/dL Calcium (8.4-10.2) mg/dL Troponin I 0.190 H* (0.000-0.034) ng/mL Total Protein (6.3-8.2) g/dL Albumin (3.5-5.0) g/dL Urine Glucose (UA) (Negative) Urine Blood (Negative) Urine Mucus (None) /hpf Stool Occult Blood (Negative) Crossmatch 09/08/17 09/08/17 09/08/17 Range/Units 22:50 23:24 23:54 RBC (3.80-5.40) m/uL Hgb (11.4-16.0) gm/dL Hct (34.0-46.0) % MCHC (31.0-37.0) g/dL PT (9.0-12.0) sec INR (<1.2) APTT (22.0-30.0) sec Sodium (137-145) mmol/L Potassium (3.5-5.1) mmol/L Chloride (98-107) mmol/L Carbon Dioxide (22-30) mmol/L BUN (7-17) mg/dL Glucose (74-99) mg/dL POC Glucose (mg/dL) 181 H 160 H 137 H (75-99) mg/dL Calcium (8.4-10.2) mg/dL Troponin I (0.000-0.034) ng/mL Total Protein (6.3-8.2) g/dL Albumin (3.5-5.0) g/dL Urine Glucose (UA) (Negative) Urine Blood (Negative) Urine Mucus (None) /hpf Stool Occult Blood (Negative) Crossmatch 09/09/17 09/09/17 09/09/17 Range/Units 00:12 00:48 01:56 RBC 2.80 L (3.80-5.40) m/uL Hgb 8.0 L (11.4-16.0) gm/dL Hct 24.9 L (34.0-46.0) % MCHC (31.0-37.0) g/dL PT (9.0-12.0) sec INR (<1.2) APTT (22.0-30.0) sec Sodium (137-145) mmol/L Potassium (3.5-5.1) mmol/L Chloride (98-107) mmol/L Carbon Dioxide (22-30) mmol/L BUN (7-17) mg/dL Glucose (74-99) mg/dL POC Glucose (mg/dL) 120 H 103 H (75-99) mg/dL Calcium (8.4-10.2) mg/dL Troponin I (0.000-0.034) ng/mL Total Protein (6.3-8.2) g/dL Albumin (3.5-5.0) g/dL Urine Glucose (UA) (Negative) Urine Blood (Negative) Urine Mucus (None) /hpf Stool Occult Blood (Negative) Crossmatch 09/09/17 09/09/17 09/09/17 Range/Units 04:21 04:21 04:21 RBC 2.78 L (3.80-5.40) m/uL Hgb 7.7 L (11.4-16.0) gm/dL Hct 24.6 L (34.0-46.0) % MCHC (31.0-37.0) g/dL PT (9.0-12.0) sec INR 1.3 H (<1.2) APTT (22.0-30.0) sec Sodium (137-145) mmol/L Potassium (3.5-5.1) mmol/L Chloride 112 H (98-107) mmol/L Carbon Dioxide 21 L (22-30) mmol/L BUN 31 H (7-17) mg/dL Glucose (74-99) mg/dL POC Glucose (mg/dL) (75-99) mg/dL Calcium (8.4-10.2) mg/dL Troponin I (0.000-0.034) ng/mL Total Protein (6.3-8.2) g/dL Albumin (3.5-5.0) g/dL Urine Glucose (UA) (Negative) Urine Blood (Negative) Urine Mucus (None) /hpf Stool Occult Blood (Negative) Crossmatch 09/09/17 09/09/17 09/09/17 Range/Units 06:03 06:04 06:38 RBC (3.80-5.40) m/uL Hgb (11.4-16.0) gm/dL Hct (34.0-46.0) % MCHC (31.0-37.0) g/dL PT (9.0-12.0) sec INR (<1.2) APTT (22.0-30.0) sec Sodium (137-145) mmol/L Potassium (3.5-5.1) mmol/L Chloride (98-107) mmol/L Carbon Dioxide (22-30) mmol/L BUN (7-17) mg/dL Glucose (74-99) mg/dL POC Glucose (mg/dL) 59 L 63 L 146 H (75-99) mg/dL Calcium (8.4-10.2) mg/dL Troponin I (0.000-0.034) ng/mL Total Protein (6.3-8.2) g/dL Albumin (3.5-5.0) g/dL Urine Glucose (UA) (Negative) Urine Blood (Negative) Urine Mucus (None) /hpf Stool Occult Blood (Negative) Crossmatch 09/09/17 Range/Units 07:01 RBC (3.80-5.40) m/uL Hgb (11.4-16.0) gm/dL Hct (34.0-46.0) % MCHC (31.0-37.0) g/dL PT (9.0-12.0) sec INR (<1.2) APTT (22.0-30.0) sec Sodium (137-145) mmol/L Potassium (3.5-5.1) mmol/L Chloride (98-107) mmol/L Carbon Dioxide (22-30) mmol/L BUN (7-17) mg/dL Glucose (74-99) mg/dL POC Glucose (mg/dL) 107 H (75-99) mg/dL Calcium (8.4-10.2) mg/dL Troponin I (0.000-0.034) ng/mL Total Protein (6.3-8.2) g/dL Albumin (3.5-5.0) g/dL Urine Glucose (UA) (Negative) Urine Blood (Negative) Urine Mucus (None) /hpf Stool Occult Blood (Negative) Crossmatch Assessment and Plan (1) GI bleeding Narrative/Plan: 66-year-old female who presents with painless bloody diarrhea most likely exacerbated by coagulopathy with intractable nausea vomiting syncopal episode and DKA. Possible colonic diverticular bleed possible ischemic self-limiting infectious possible upper GI pathology. Current Visit: Yes Status: Acute Code(s): K92.2 - GASTROINTESTINAL HEMORRHAGE, UNSPECIFIED SNOMED Code(s): 86168933 (2) Acute blood loss anemia Current Visit: Yes Status: Acute Code(s): D62 - ACUTE POSTHEMORRHAGIC ANEMIA SNOMED Code(s): 955064893 (3) Warfarin-induced coagulopathy Current Visit: Yes Status: Acute Code(s): D68.32 - HEMORRHAGIC DISORD D/T EXTRINSIC CIRCULATING ANTICOAGULANTS; T45.515A - ADVERSE EFFECT OF ANTICOAGULANTS, INITIAL ENCOUNTER SNOMED Code(s): 67886076 (4) Diabetic ketoacidosis Current Visit: Yes Status: Acute Code(s): E13.10 - OTH DIABETES MELLITUS WITH KETOACIDOSIS WITHOUT COMA SNOMED Code(s): 987416220 (5) Hematochezia Current Visit: Yes Status: Acute Code(s): K92.1 - MELENA SNOMED Code(s): 691128501 (6) Status post kidney transplant Current Visit: No Status: Chronic Code(s): Z94.0 - KIDNEY TRANSPLANT STATUS SNOMED Code(s): 457016024 Plan: 1. EGD colonoscopy today. Clear liquids until lunch. CBC monitoring. Continue to hold Coumadin. Protonix 40 mg IV. The statistical programmer has discussed the risks, benefits and alternative therapies for the above-mentioned procedure and for both sedation/analgesia as well as necessary blood product administration, if indicated, as they pertain to this patient. The patient has indicated understanding and acceptance of the risks and procedures discussed. Thank you for this kind referral and the opportunity to participate in the care of your patient. This consultation was discussed with Dr. Turcios. The impression and plan of care have been directed as dictated.
[2017-09-09 09:34] LABS: Glucose,Whole Blood 72 mg/dL (75-99)
[2017-09-09 10:12] LABS: Glucose,Whole Blood 64 mg/dL (75-99)
[2017-09-09 10:25] LABS: Glucose,Whole Blood 90 mg/dL (75-99)
[2017-09-09 11:02] LABS: Glucose,Whole Blood 111 mg/dL (75-99)
[2017-09-09 12:08] LABS: Glucose,Whole Blood 85 mg/dL (75-99)
[2017-09-09 12:15] LABS: Basophils % (A) 0 %; Eosinophils # (A) 0.4 k/uL (0-0.7); Eosinophils % (A) 4 %; Hypochromasia Moderate; Lymphocytes # (A) 1.8 k/uL (1.0-4.8); Lymphocytes % (A) 18 %; MCH 27.5 pg (25.0-35.0); MCV 88.6 fL (80.0-100.0); Mean Platelet Volume 6.8; Monocytes # (A) 0.5 k/uL (0-1.0); Monocytes % (A) 6 %; Neutrophils # (A) 6.6 k/uL (1.3-7.7); Neutrophils % (A) 69 %; Platelet Count 332 k/uL (150-450); RBC 3.28 m/uL (3.80-5.40); WBC 9.5 k/uL (3.8-10.6)
[2017-09-09] MEDS ORDERED: BISACODYL 5 MG TABLET.DR PO STA (12:38)
[2017-09-09] MEDS ORDERED: POLYETHYLENE GLYCOL 3350 17 GM POWD.PACK PO STA (12:39)
[2017-09-09 13:06] LABS: Glucose,Whole Blood 89 mg/dL (75-99)
--- NOTE | 2017-09-09 13:53 | XR ---
EXAMINATION TYPE: XR Hip Limited RT, XR Hip Limited LT DATE OF EXAM: 09/09/2017 CLINICAL HISTORY: Bilateral hip pain TECHNIQUE: AP view of the both hips are obtained. COMPARISON: None. FINDINGS: There is no acute fracture/dislocation evident in the either hip. There is generalized oss eous demineralization and severe atherosclerosis. Surgical clips are noted within the right common fe moral region. There is minimal bilateral femoral acetabular arthropathy with acetabular roof sclerosis and small ma rginal osteophyte of the left acetabular sourcil. IMPRESSION: 1. There is no acute fracture or dislocation in either hip. 2. Minimal bilateral femoral acetabular arthropathy, left greater than right. 3. Generalized osseous demineralization and severe peripheral atherosclerosis.
--- NOTE | 2017-09-09 14:36 | P.PN ---
Subjective Progress Note Date: 09/09/17 66 years old female patient of Dr. Johns past medical history of atrial fibrillation, type 2 diabetes, hyperlipidemia, hypertension and history of renal transplant times 06/13/1995 and 2009, thyroid disorder peripheral vascular disorder, history of peptic ulcer disease 10 years ago comes in with feeling of tiredness past several weeks. Patient was seen by Dr. Johns and myself arm in the clinic where she was complaining of some bilateral hip pain associated with anterior high pain. Simvastatin was discontinued for concern of myositis. Patient states it did not improve her muscle aches. She states she's been having diarrhea for the past few weeks but today she had bright red blood through the rectum with increasing blood sugars with no improvement on taking insulin. Patient came to ER and was found to have a glucose of 600 and hemoglobin of 6.2 a drop from 12. INR 2.6, potassium 6.8, normal troponin fecal occult positive acetone positive normal LFTs. During evaluation ED patient had a presyncope event. Her heart rate dropped into the low 30s. Patient was admitted to the ICU. She received 1 L of IV fluid in the ER. Evidently ordered another 2 L of IV fluid to correct diabetes ketoacidosis. 1 unit of PRBC ordered. Repeat hemoglobin checked later during the evening evening. I think patient would benefit from a dose of calcium gluconate as patient has hyperlipidemia with an episode of bradycardia. Repeat CBC, CMP, magnesium. Vitals are stable with blood pressure of 117/70. Protonix 40 IV twice a day. INR 2 with reverse with vitamin K 5 mg. Hold Coumadin 09/09: Patient is followed by Dr. Banerjee for intensive care management. GI is planning for EGD and colonoscopy today. Coumadin remains on hold. Patient has been able to tolerate clear liquid diet this morning. She denies any abdominal pain or tenderness at this time. She is status post transfusion of 2 units of packed RBCs. Hemoglobin is 9.0. Troponins are elevated and cardiology consult requested. Blood pressure is elevated for which Lopressor IV pushes been added. Patient is complaining of bilateral hip pain for which x-rays ordered that showed no acute fracture or dislocation. Minimal bilateral femoral acetabular arthropathy, left greater than right. Generalized osseous demineralization and severe peripheral atherosclerosis. Objective - Vital Signs Vital signs: Vital Signs Temp 98.3 F 09/09/17 08:00 Pulse 85 09/09/17 11:00 Resp 18 09/09/17 11:00 BP 172/68 09/09/17 11:00 Pulse Ox 100 09/09/17 11:00 Intake & Output 09/08/17 09/09/17 09/09/17 18:59 06:59 18:59 Intake Total 2755.802 1138.217 Output Total 0 600 0 Balance 2755.802 538.217 0 Weight 58.967 kg 58.9 kg 58.9 kg Intake: IV 2100 1125 D5-0.45% NaCl with KCl 1125 20Meq/l 1,000 ml @ 75 mls /hr IV .[id number] [facility] Rx#: [id number] Magnesium Sulfate-D5w Pmx 100 1 gm In Dextrose/Water 1 100ml.bag @ 100 mls/hr IVPB Q1H [facility] Rx#: [id number] Sodium Chloride 0.9% 1, 0 000 ml @ 200 mls/hr IV . Q5H [facility] Rx#:[id number] Sodium Chloride 0.9% 1, 2000 000 ml @ 999 mls/hr IV . Q1H1M [facility] Rx#:[id number] Intake, IV Titration 35.802 13.217 Amount Insulin Regular 100 unit 35.802 13.217 In Sodium Chloride 0.9% 100 ml @ 0.1 UNITS/KG/HR 5.95 mls/hr IV .[id number] [facility] Rx#:[id number] Blood Product 620 Rc As-1 Unit 310 [id number] Rc As-1 Unit 310 [id number] Output: Urine 0 600 0 Other: Voiding Method Toilet Toilet Toilet # Voids 1 1 1 # Bowel Movements 1 - Exam General appearance: cooperative, no acute distress, thin-appearing - EENT Eyes: anicteric sclerae, PERRLA, normal appearance ENT: hearing grossly normal - Neck Neck: no lymphadenopathy, normal ROM, no other, no rigidity, no stridor, no thyromegaly - Respiratory Respiratory: bilateral: CTA, negative: diminished, dullness, rales, rhonchi - Cardiovascular Rhythm: regular Heart sounds: normal: S1, S2 Abnormal Heart Sounds: no systolic murmur, no diastolic murmur, no rub, no S3 Gallop, no S4 Gallop, no click, no other - Gastrointestinal General gastrointestinal: normal bowel sounds, soft, no tenderness in the epigastric area, nondistended normal bowel sounds - Integumentary Integumentary: no rash - Neurologic Neurologic: CNII-XII intact - Musculoskeletal Musculoskeletal: strength equal bilaterally - Psychiatric Psychiatric: A&O x's 3, appropriate affect - Labs CBC & Chem 7: 09/09/17 12:02 09/09/17 04:21 Labs: Abnormal Lab Results - Last 24 Hours (Table) 09/08/17 09/08/17 09/08/17 Range/Units 09:08 09:08 09:08 RBC (3.80-5.40) m/uL Hgb (11.4-16.0) gm/dL Hct (34.0-46.0) % MCHC (31.0-37.0) g/dL PT 23.6 H (9.0-12.0) sec INR 2.6 H (<1.2) Sodium (137-145) mmol/L Chloride (98-107) mmol/L Carbon Dioxide (22-30) mmol/L BUN (7-17) mg/dL Glucose (74-99) mg/dL POC Glucose (mg/dL) (75-99) mg/dL Hemoglobin A1c 8.9 H (4.0-6.0) % Calcium (8.4-10.2) mg/dL Troponin I (0.000-0.034) ng/mL Urine Glucose (UA) (Negative) Urine Blood (Negative) Urine Mucus (None) /hpf Crossmatch See Detail 09/08/17 09/08/17 09/08/17 Range/Units 11:37 13:20 13:47 RBC (3.80-5.40) m/uL Hgb (11.4-16.0) gm/dL Hct (34.0-46.0) % MCHC (31.0-37.0) g/dL PT (9.0-12.0) sec INR (<1.2) Sodium (137-145) mmol/L Chloride (98-107) mmol/L Carbon Dioxide (22-30) mmol/L BUN (7-17) mg/dL Glucose (74-99) mg/dL POC Glucose (mg/dL) 598 H 519 H 500 H (75-99) mg/dL Hemoglobin A1c (4.0-6.0) % Calcium (8.4-10.2) mg/dL Troponin I (0.000-0.034) ng/mL Urine Glucose (UA) (Negative) Urine Blood (Negative) Urine Mucus (None) /hpf Crossmatch 09/08/17 09/08/17 09/08/17 Range/Units 14:51 14:51 14:51 RBC 2.50 L (3.80-5.40) m/uL Hgb 6.9 L* (11.4-16.0) gm/dL Hct 22.1 L (34.0-46.0) % MCHC (31.0-37.0) g/dL PT (9.0-12.0) sec INR (<1.2) Sodium 135 L (137-145) mmol/L Chloride (98-107) mmol/L Carbon Dioxide 20 L (22-30) mmol/L BUN 52 H (7-17) mg/dL Glucose 355 H (74-99) mg/dL POC Glucose (mg/dL) 397 H (75-99) mg/dL Hemoglobin A1c (4.0-6.0) % Calcium (8.4-10.2) mg/dL Troponin I (0.000-0.034) ng/mL Urine Glucose (UA) (Negative) Urine Blood (Negative) Urine Mucus (None) /hpf Crossmatch 09/08/17 09/08/17 09/08/17 Range/Units 15:51 17:02 18:22 RBC (3.80-5.40) m/uL Hgb (11.4-16.0) gm/dL Hct (34.0-46.0) % MCHC (31.0-37.0) g/dL PT (9.0-12.0) sec INR (<1.2) Sodium (137-145) mmol/L Chloride 112 H (98-107) mmol/L Carbon Dioxide 20 L (22-30) mmol/L BUN 43 H (7-17) mg/dL Glucose (74-99) mg/dL POC Glucose (mg/dL) 283 H 180 H (75-99) mg/dL Hemoglobin A1c (4.0-6.0) % Calcium 8.3 L (8.4-10.2) mg/dL Troponin I (0.000-0.034) ng/mL Urine Glucose (UA) (Negative) Urine Blood (Negative) Urine Mucus (None) /hpf Crossmatch 09/08/17 09/08/17 09/08/17 Range/Units 18:22 19:12 20:00 RBC 2.93 L (3.80-5.40) m/uL Hgb 8.0 L (11.4-16.0) gm/dL Hct 26.0 L (34.0-46.0) % MCHC 30.9 L (31.0-37.0) g/dL PT (9.0-12.0) sec INR (<1.2) Sodium (137-145) mmol/L Chloride (98-107) mmol/L Carbon Dioxide (22-30) mmol/L BUN (7-17) mg/dL Glucose (74-99) mg/dL POC Glucose (mg/dL) 128 H 162 H (75-99) mg/dL Hemoglobin A1c (4.0-6.0) % Calcium (8.4-10.2) mg/dL Troponin I (0.000-0.034) ng/mL Urine Glucose (UA) (Negative) Urine Blood (Negative) Urine Mucus (None) /hpf Crossmatch 09/08/17 09/08/17 09/08/17 Range/Units 20:10 20:48 21:10 RBC (3.80-5.40) m/uL Hgb (11.4-16.0) gm/dL Hct (34.0-46.0) % MCHC (31.0-37.0) g/dL PT (9.0-12.0) sec INR (<1.2) Sodium (137-145) mmol/L Chloride (98-107) mmol/L Carbon Dioxide (22-30) mmol/L BUN (7-17) mg/dL Glucose (74-99) mg/dL POC Glucose (mg/dL) 238 H (75-99) mg/dL Hemoglobin A1c (4.0-6.0) % Calcium (8.4-10.2) mg/dL Troponin I 0.190 H* (0.000-0.034) ng/mL Urine Glucose (UA) 2+ H (Negative) Urine Blood Moderate H (Negative) Urine Mucus Rare H (None) /hpf Crossmatch 09/08/17 09/08/17 09/08/17 Range/Units 21:31 22:29 22:50 RBC (3.80-5.40) m/uL Hgb (11.4-16.0) gm/dL Hct (34.0-46.0) % MCHC (31.0-37.0) g/dL PT (9.0-12.0) sec INR (<1.2) Sodium (137-145) mmol/L Chloride (98-107) mmol/L Carbon Dioxide (22-30) mmol/L BUN (7-17) mg/dL Glucose (74-99) mg/dL POC Glucose (mg/dL) 191 H 173 H 181 H (75-99) mg/dL Hemoglobin A1c (4.0-6.0) % Calcium (8.4-10.2) mg/dL Troponin I (0.000-0.034) ng/mL Urine Glucose (UA) (Negative) Urine Blood (Negative) Urine Mucus (None) /hpf Crossmatch 09/08/17 09/08/17 09/09/17 Range/Units 23:24 23:54 00:12 RBC 2.80 L (3.80-5.40) m/uL Hgb 8.0 L (11.4-16.0) gm/dL Hct 24.9 L (34.0-46.0) % MCHC (31.0-37.0) g/dL PT (9.0-12.0) sec INR (<1.2) Sodium (137-145) mmol/L Chloride (98-107) mmol/L Carbon Dioxide (22-30) mmol/L BUN (7-17) mg/dL Glucose (74-99) mg/dL POC Glucose (mg/dL) 160 H 137 H (75-99) mg/dL Hemoglobin A1c (4.0-6.0) % Calcium (8.4-10.2) mg/dL Troponin I (0.000-0.034) ng/mL Urine Glucose (UA) (Negative) Urine Blood (Negative) Urine Mucus (None) /hpf Crossmatch 09/09/17 09/09/17 09/09/17 Range/Units 00:48 01:56 04:21 RBC (3.80-5.40) m/uL Hgb (11.4-16.0) gm/dL Hct (34.0-46.0) % MCHC (31.0-37.0) g/dL PT (9.0-12.0) sec INR 1.3 H (<1.2) Sodium (137-145) mmol/L Chloride (98-107) mmol/L Carbon Dioxide (22-30) mmol/L BUN (7-17) mg/dL Glucose (74-99) mg/dL POC Glucose (mg/dL) 120 H 103 H (75-99) mg/dL Hemoglobin A1c (4.0-6.0) % Calcium (8.4-10.2) mg/dL Troponin I (0.000-0.034) ng/mL Urine Glucose (UA) (Negative) Urine Blood (Negative) Urine Mucus (None) /hpf Crossmatch 09/09/17 09/09/17 09/09/17 Range/Units 04:21 04:21 06:03 RBC 2.78 L (3.80-5.40) m/uL Hgb 7.7 L (11.4-16.0) gm/dL Hct 24.6 L (34.0-46.0) % MCHC (31.0-37.0) g/dL PT (9.0-12.0) sec INR (<1.2) Sodium (137-145) mmol/L Chloride 112 H (98-107) mmol/L Carbon Dioxide 21 L (22-30) mmol/L BUN 31 H (7-17) mg/dL Glucose (74-99) mg/dL POC Glucose (mg/dL) 59 L (75-99) mg/dL Hemoglobin A1c (4.0-6.0) % Calcium (8.4-10.2) mg/dL Troponin I (0.000-0.034) ng/mL Urine Glucose (UA) (Negative) Urine Blood (Negative) Urine Mucus (None) /hpf Crossmatch 09/09/17 09/09/17 09/09/17 Range/Units 06:04 06:38 07:01 RBC (3.80-5.40) m/uL Hgb (11.4-16.0) gm/dL Hct (34.0-46.0) % MCHC (31.0-37.0) g/dL PT (9.0-12.0) sec INR (<1.2) Sodium (137-145) mmol/L Chloride (98-107) mmol/L Carbon Dioxide (22-30) mmol/L BUN (7-17) mg/dL Glucose (74-99) mg/dL POC Glucose (mg/dL) 63 L 146 H 107 H (75-99) mg/dL Hemoglobin A1c (4.0-6.0) % Calcium (8.4-10.2) mg/dL Troponin I (0.000-0.034) ng/mL Urine Glucose (UA) (Negative) Urine Blood (Negative) Urine Mucus (None) /hpf Crossmatch 09/09/17 09/09/17 09/09/17 Range/Units 09:32 10:08 10:59 RBC (3.80-5.40) m/uL Hgb (11.4-16.0) gm/dL Hct (34.0-46.0) % MCHC (31.0-37.0) g/dL PT (9.0-12.0) sec INR (<1.2) Sodium (137-145) mmol/L Chloride (98-107) mmol/L Carbon Dioxide (22-30) mmol/L BUN (7-17) mg/dL Glucose (74-99) mg/dL POC Glucose (mg/dL) 72 L 64 L 111 H (75-99) mg/dL Hemoglobin A1c (4.0-6.0) % Calcium (8.4-10.2) mg/dL Troponin I (0.000-0.034) ng/mL Urine Glucose (UA) (Negative) Urine Blood (Negative) Urine Mucus (None) /hpf Crossmatch Assessment and Plan Plan: 1. Diabetic ketoacidosis. Admit the patient to the intensive care unit, continue IV fluid resuscitation. Continue insulin drip per DKA protocol, switch the IV fluid to D5 half-normal saline when her blood glucose levels around 250, and transition the patient from insulin drip and to Levemir per sliding scale. Dr. Banerjee is following for intensive care management 2. Acute GI bleed likely secondary to peptic ulcer disease as patient has history of peptic ulcer disease with coagulopathy on Coumadin. Continue Protonix 40 mg IV twice a day. Monitor hemoglobin closely. Status post 2unit PRBC. Coumadin is on hold. GI is planning EGD and colonoscopy. Abdominal pain is improved. 3. Hyperkalemia status post 1 g calcium gluconate. With glucose coming down the potassium should come down as well. Repeat CMP 4. Troponin anemia. Consult with cardiology. 5. Diabetic kidney disease, end-stage renal disease, Status post renal transplant: Continue Prograf and CellCept along with prednisone 5 mg a day. 6. Paroxysmal A. fib: Patient pulse rate has been doing well. Hold warfarin due to GI bleed with PT/INR daily patient heart rate has been well controlled on metoprolol. 7. Hyperlipidemia: Continue Zocor at 40 mg daily. 8. Hypothyroidism: Continue Synthroid at 25 g daily. 9. Syncope possibly related to bradycardia or volume depletion on vasovagal. One dose of calcium gluconate given to correct hyperkalemia related membrane instability. Continue fluids. Cardiology consult. 10. Coagulopathy secondary to Coumadin. Hold Coumadin due to GI bleed 11. GI prophylaxis: Patient remain on on Protonix IV for now. 12. DVT prophylaxis: Hold Coumadin. SCD 13. Full code. Discharge plan: To be determined Impression and plan of care have been directed as dictated by the signing physician. Anca Magaña nurse practitioner acting as scribe for signing physician.
--- NOTE | 2017-09-09 14:41 | P.CRDCN ---
History of Present Illness Consult date: 09/09/17 History of present illness: Mrs. Osorio is a pleasant 66-year-old female past medical history significant for paroxysmal atrial fibrillation on intermodal customer service anticoagulation with coumadin, diabetes mellitus, hypertension, dyslipidemia, chronic renal disease s/p renal translplant x2 and peripheral vascular disease. She follows with Dr. Villar in the office. We have been asked to see her in consultation for elevated troponin, on admission less than 0.012, 0.012, 0.19, 0.656. She initially presented to the hospital yesterday with complaints of weakness and progressive bright red blood per rectum. On admission her hemoglobin was found to be 6.2, INR 2.6, potassium 6.8, sodium 130 and glucose 636. In the the emergency department she had a presyncopal event were heart rate dropped to 30. She has received multiple fluid boluses and 2 units of packed red blood cells. INR has been reversed with vitamin K. Repeat hemoglobin today 9.0, potassium 4.7, sodium 141, creatinine 0.7, INR 1.3. GI has seen the patient in consultation and plan for a EGD colonoscopy this afternoon at 1700. She denies ever having had symptoms of chest pain, shortness of breath, dizziness, palpitations, nausea, vomiting or diaphoresis. Telemetry tracings have been unremarkable and indicate sinus mechanism with first-degree AV block. Metoprolol EKG reveals sinus mechanism with first-degree AV block and poor R-wave progression with possible old anteroseptal SC. Current cardiac medications include lisinopril 10 mg daily, Coumadin 5 mg Tuesday and 6 mg Tuesday, simvastatin 40 mg daily, Lopressor 25 mg daily. Her simvastatin was recently discontinued secondary to extensive muscle aches in the lower extremities. Most recent echocardiogram performed in the office 2014 reveals preserved left ventricular systolic function with ejection fraction 60%. Most recent Lexiscan stress test performed in the office in 2014 reveals normal myocardial perfusion imaging with predominantly fixed apical lateral wall and inferior apical wall with no significant normalization on the rest images. Review of Systems At the time of my exam: CONSTITUTIONAL: Denies fever. Denies chills. EYES: Denies blurred vision. Denies vision changes. Denies eye pain. EARS, NOSE, MOUTH & THROAT: Denies headache. Denies sore throat. Denies ear pain. CARDIOVASCULAR: Denies chest pain. Denies shortness of breath. Denies orthopnea. Denies PND. Denies palpitations. RESPIRATORY: Denies cough. GASTROINTESTINAL: Denies abdominal pain. Denies diarrhea. Denies constipation. Denies nausea. Denies vomiting. MUSCULOSKELETAL: Denies myalgias. INTEGUMENTARY: Denies pruitis. Denies rash. NEUROLOGIC: Denies numbness. Denies tingling. Denies weakness. PSYCHIATRIC: Denies anxiety. Denies depression. ENDOCRINE: Denies fatigue. Denies weight change. Denies polydipsia. Denies polyurina. GENITOURINARY: Denies burning, hematuria or urgency with micturation. HEMATOLOGIC: Denies history of anemia. Denies bleeding. Past Medical History Past Medical History: Atrial Fibrillation, Diabetes Mellitus, Eye Disorder, GERD /Reflux, Hyperlipidemia, Hypertension, Renal Disease, Thyroid Disorder, Vascular Disorder Additional Past Medical History / Comment(s): IDDM type II, bilateral diabetic neuropathy bilateral feet, PAD, renal failure with kidney transplant twice- prior to transplants was on hemodialysis, anemia, afib once in her life associated with an illness, murmur, PUD-bleeding many years ago, bilateral eyes glaucoma and diabetic retinopathy, frequent UTIs-daily antibiiotic use, hypothyroid. History of Any Multi-Drug Resistant Organisms: None Reported Date of last positivie culture/infection: 01/25/13 MDRO Source:: pt denies every having cdiff Past Surgical History: Appendectomy, Section, Cholecystectomy, Heart Catheterization, Hysterectomy Additional Past Surgical History / Comment(s): kidney transplant twice right in 1995 and left in 2009, corina cataracts with lens implants, laser eye surgery for glaucoma and retinopathy, aortogram 11/25/15, 12/31/15 R LEG FEMORAL POPLITEAL BALOONING /ARTHRECTOMY, COLONOSCOPY, NONFUNCTIONING HEMODIALYSIS SHUNT L ARM, Past Anesthesia/Blood Transfusion Reactions: No Reported Reaction Additional Past Anesthesia/Blood Transfusion Reaction / Comment(s): Pt recieved blood in 1995 without reaction. Smoking Status: Former smoker - Past Family History Father Family Medical History: COPD Additional Family Medical History / Comment(s): . Mother Family Medical History: Cancer Additional Family Medical History / Comment(s): Mother had melanoma Medications and Allergies Home Medications Medication Instructions Recorded Confirmed Type Mycophenolate Mofetil [Cellcept] 1,000 mg PO BID 01/24/15 09/08/17 History Simvastatin [Zocor] 40 mg PO HS 01/24/15 09/08/17 History Warfarin Sodium 4 mg PO SUTUTHSA 01/24/15 09/08/17 History predniSONE 5 mg PO DAILY 01/24/15 09/08/17 History Insulin Detemir [Levemir] 30 unit SQ HS 11/18/15 09/08/17 History Levothyroxine Sodium [Synthroid] 200 mcg PO DAILY 11/18/15 09/08/17 History [place]-3 Fatty Acids/Fish Oil [Fish 1 cap PO DAILY 11/18/15 09/08/17 History Oil 1,000 mg Softgel] Tacrolimus [Prograf] 1 mg PO TID 11/18/15 09/08/17 History Biotin Tab 2 tab PO DAILY 12/30/15 09/08/17 History Cholecalciferol [Vitamin D3] 2,000 unit PO DAILY 12/30/15 09/08/17 History Warfarin Sodium 6 mg PO MOWEFR 12/30/15 09/08/17 History Cranberry 400mg 400 mg PO DAILY 09/08/17 09/08/17 History Insulin Aspart [NovoLOG Flexpen] 3 units SQ AC-BRKFST 09/08/17 09/08/17 History Insulin Aspart [NovoLOG Flexpen] 6 units SQ AC-LUNCH 09/08/17 09/08/17 History Insulin Aspart [NovoLOG Flexpen] 6 units SQ AC-SUPPER 09/08/17 09/08/17 History Lisinopril [Zestril] 10 mg PO HS 09/08/17 09/08/17 History Metoprolol Tartrate [Lopressor] 25 mg PO DAILY 09/08/17 09/08/17 History Allergies Allergy/AdvReac Type Severity Reaction Status Date / Time No Known Allergies Allergy Verified 09/08/17 08:34 Physical Exam Vitals: Vital Signs Temp Pulse Resp BP Pulse Ox 09/09/17 13:00 98 F 90 20 164/78 99 09/09/17 12:00 98.3 F 85 23 138/38 100 09/09/17 11:00 85 18 172/68 100 09/09/17 10:00 86 18 167/78 100 09/09/17 09:00 81 17 158/73 98 09/09/17 08:00 98.3 F 85 22 141/65 100 09/09/17 07:00 98.3 F 77 20 109/48 97 09/09/17 06:00 79 11 L 105/53 96 09/09/17 05:00 79 12 123/54 95 09/09/17 04:00 98.7 F 74 22 98/45 95 09/09/17 03:00 76 18 101/48 98 09/09/17 02:00 82 19 98/46 94 L 09/09/17 01:00 76 22 87/46 97 09/09/17 00:00 98.7 F 81 23 110/54 94 L 09/08/17 23:00 84 12 108/47 97 09/08/17 22:03 86 10 L 105/41 97 09/08/17 22:00 86 13 105/41 97 09/08/17 21:00 89 12 115/47 99 09/08/17 20:00 99.1 F 90 16 94/46 98 09/08/17 19:00 82 19 113/50 96 09/08/17 18:00 87 19 121/53 97 09/08/17 17:15 84 18 125/58 97 09/08/17 17:00 98 F 86 28 H 125/58 99 09/08/17 16:00 98 F 87 19 117/55 100 09/08/17 15:45 86 24 117/55 98 09/08/17 15:30 85 18 106/55 97 09/08/17 15:00 88 16 118/41 100 09/08/17 14:30 98.1 F 89 18 106/46 100 09/08/17 14:15 87 22 106/46 100 Intake and Output 09/08/17 09/09/17 09/09/17 22:59 06:59 14:59 Intake Total 2213.291 678.05 Output Total 600 0 Balance 1613.291 678.05 0 Intake: IV 1550 675 D5-0.45% NaCl with KCl 450 675 20Meq/l 1,000 ml @ 75 mls /hr IV .[id number] [facility] Rx#: [id number] Magnesium Sulfate-D5w Pmx 100 1 gm In Dextrose/Water 1 100ml.bag @ 100 mls/hr IVPB Q1H [facility] Rx#: [id number] Sodium Chloride 0.9% 1, 0 000 ml @ 200 mls/hr IV . Q5H [facility] Rx#:[id number] Sodium Chloride 0.9% 1, 1000 000 ml @ 999 mls/hr IV . Q1H1M [facility] Rx#:[id number] Intake, IV Titration 43.291 3.05 Amount Insulin Regular 100 unit 43.291 3.05 In Sodium Chloride 0.9% 100 ml @ 0.1 UNITS/KG/HR 5.95 mls/hr IV .[id number] [facility] Rx#:[id number] Blood Product 620 Rc As-1 Unit 310 [id number] Rc As-1 Unit 310 [id number] Output: Urine 600 0 Other: Voiding Method Toilet Toilet Toilet # Voids 1 1 1 # Bowel Movements 2 Weight 58.9 kg 58.9 kg Blood pressure 164/78 heart rate 90 afebrile maintaining oxygen saturation on room air GENERAL: This is a 66-year-old occasion female in no apparent distress at the time of my examination. HEENT: Head is atraumatic, normocephalic. Pupils are equal, round. Sclerae anicteric. Conjunctivae are clear. Mucous membranes of the mouth are moist. Neck is supple. There is no jugular venous distention. No carotid bruit is heard. LUNGS: Clear to auscultation no wheezes, rales or rhonchi. No chest wall tenderness is noted on palpation or with deep breathing. HEART: Regular rate and rhythm with faint murmur at the base, no rubs or gallops. S1 and S2 heard. ABDOMEN: Soft, nontender. Bowel sounds are heard. No organomegaly noted. EXTREMITIES: No evidence of peripheral edema and no calf tenderness noted. VASCULAR: Radial and dorsalis pedis pulses palpated, no evidence of clubbing. NEUROLOGIC: Patient is awake, alert and oriented x3. Results 09/09/17 12:02 09/09/17 04:21 Cardiac Enzymes 09/08/17 09/08/17 Range/Units 14:51 21:10 Troponin I 0.012 0.190 H* (0.000-0.034) ng/mL Coagulation 09/08/17 09/09/17 Range/Units 09:08 04:21 PT 23.6 H 12.0 (9.0-12.0) sec CBC 09/08/17 09/08/17 09/09/17 Range/Units 14:51 18:22 00:12 WBC 8.9 8.8 8.5 (3.8-10.6) k/uL RBC 2.50 L 2.93 L 2.80 L (3.80-5.40) m/uL Hgb 6.9 L* 8.0 L 8.0 L (11.4-16.0) gm/dL Hct 22.1 L 26.0 L 24.9 L (34.0-46.0) % Plt Count 281 266 259 (150-450) k/uL 09/09/17 09/09/17 Range/Units 04:21 12:02 WBC 7.2 9.5 (3.8-10.6) k/uL RBC 2.78 L 3.28 L (3.80-5.40) m/uL Hgb 7.7 L 9.0 L (11.4-16.0) gm/dL Hct 24.6 L 29.0 L (34.0-46.0) % Plt Count 266 332 (150-450) k/uL Comprehensive Metabolic Panel 09/08/17 09/08/17 09/09/17 Range/Units 14:51 18:22 04:21 Sodium 135 L 141 141 (137-145) mmol/L Potassium 5.0 4.6 4.7 (3.5-5.1) mmol/L Chloride 105 112 H 112 H (98-107) mmol/L Carbon Dioxide 20 L 20 L 21 L (22-30) mmol/L BUN 52 H 43 H 31 H (7-17) mg/dL Creatinine 0.80 0.80 0.70 (0.52-1.04) mg/dL Glucose 355 H 78 74 (74-99) mg/dL Calcium 8.6 8.3 L 8.5 (8.4-10.2) mg/dL Current Medications Generic Name Dose Route Start Last Admin Trade Name Freq PRN Reason Stop Dose Admin Potassium Chloride/Dextrose/Sod Cl 1,000 mls @ 75 mls/hr 09/08/17 19:00 09/09 06:50 D5%-1/2ns-Kcl 20 Meq/L Iv Solution IV 75 mls/hr .[id number] FREDA Administration Insulin Detemir 10 unit 09/09/17 21:00 Levemir SQ HS [facility] Levothyroxine Sodium 200 mcg 09/09/17 06:30 09/09/17 06:10 Synthroid PO 200 mcg DAILY@0630 FREDA Administration Methyl Salicylate 1 applic 09/08/17 22:18 Thera-Gesic Cream TOPICAL Q8HR PRN Mild to Moderate Pain Miscellaneous Information 1 each 09/08/17 12:27 Magnesium Per Protocol MISCELLANE DAILY PRN Per Protocol Protocol Miscellaneous Information 1 each 09/08/17 12:27 Potassium Per Protocol MISCELLANE DAILY PRN Per Protocol Miscellaneous Information 1 each 09/08/17 16:29 Magnesium Per Protocol MISCELLANE DAILY PRN Per Protocol Protocol Naloxone HCl 0.2 mg 09/08/17 12:23 Narcan IV Q2M PRN Opioid Reversal Pantoprazole Sodium 40 mg 09/08/17 21:00 09/09/17 08:44 Protonix IV 40 mg BID FREDA Administration Intake and Output 09/08/17 09/09/17 09/09/17 22:59 06:59 14:59 Intake Total 2213.291 678.05 Output Total 600 0 Balance 1613.291 678.05 0 Intake: IV 1550 675 D5-0.45% NaCl with KCl 450 675 20Meq/l 1,000 ml @ 75 mls /hr IV .[id number] [facility] Rx#: [id number] Magnesium Sulfate-D5w Pmx 100 1 gm In Dextrose/Water 1 100ml.bag @ 100 mls/hr IVPB Q1H [facility] Rx#: [id number] Sodium Chloride 0.9% 1, 0 000 ml @ 200 mls/hr IV . Q5H [facility] Rx#:[id number] Sodium Chloride 0.9% 1, 1000 000 ml @ 999 mls/hr IV . Q1H1M [facility] Rx#:[id number] Intake, IV Titration 43.291 3.05 Amount Insulin Regular 100 unit 43.291 3.05 In Sodium Chloride 0.9% 100 ml @ 0.1 UNITS/KG/HR 5.95 mls/hr IV .[id number] [facility] Rx#:[id number] Blood Product 620 As-1 Unit 310 [id number] As-1 Unit 310 [id number] Output: Urine 600 0 Other: Voiding Method Toilet Toilet Toilet # Voids 1 1 1 # Bowel Movements 2 Weight 58.9 kg 58.9 kg Patient Weight 09/10/17 06:59 Weight 58.9 kg 09/09/17 12:02 09/09/17 04:21 Assessment and Plan Assessment: ASSESSMENT 1. Acute bright red gastrointestinal bleeding 2. Mild troponin leak secondary to acute blood loss anemia 3. Acute blood loss anemia 4. Paroxysmal atrial fibrillation on long-term anticoagulation with Coumadin 5. Peripheral vascular disease 6. Hypertension 7. Dyslipidemia 8. Diabetes mellitus 9. First-degree AV terence block 10. History of kidney transplantation 2 11. Hyperkalemia on admission PLAN Obtain 2-D echocardiogram and Doppler study to assess cardiac structure and function. Continue to hold all AV terence blocking agent secondary to first-degree heart block. Continue to hold Coumadin until hemoglobin stabilizes and source of bleeding has been determined. Resume lisinopril 10 mg daily. We will continue to follow closely. Further recommendations to follow based upon clinical course. Nurse Practitioner note has been reviewed, I agree with a documented findings and plan of care. Patient was seen and examined.
[2017-09-09] MEDS: METOPROLOL TARTRATE 5 MG/5 ML VIAL IVP PRN (15:07)
--- NOTE | 2017-09-09 15:08 | PN ---
Subjective Progress Note Date: 09/09/17 Principal diagnosis: Acute GI bleeding, and acute diabetic ketoacidosis Mrs. Osorio 66-year-old white female patient of Dr. Levin who presented to the emergency department on 08/29/2017 for evaluation of a few days' history of dark stools. She states last night she noticed the stool started changing color , and became more maroon in appearance. Patient felt more fatigued and weak. She does have history of previous GI bleeding in 2007, and the EGD at that time identified a bleeding gastric ulcer. Patient is on Coumadin for history of paroxysmal atrial fibrillation, currently in sinus rhythm. Patient does have iron deficiency anemia and she is on iron supplements, and initially she was not alarmed at her dark stools relating it to her iron supplements. Other medical history includes diabetes mellitus, chronic kidney disease with history of 2 kidney transplants, one in 1995, and 2009. Her kidney transplants were from living donors. Past medical history also includes hypertension, hyperlipidemia, hypothyroidism, neuropathy, and patient is a former smoker. Lab work showed a hemoglobin of 6.2, INR of 2.6, sodium of 1:30, potassium 6.8, CO2 of 17, BUN 60, creatinine is 0.87. Serum glucose was 636, with positive serum acetone level. Troponin cardiac enzymes were negative 1, lipase was within normal limits at 183. Stool occult blood was positive. She was given 2 L of IV bolus of 0.9 normal saline in the emergency room, receiving 2 units of packed red blood cells, she was placed in the intensive care. DKA protocol sling effusion has been started. Reevaluated today on 09/09/2017, patient seems to be doing much better today, no further episodes of GI bleeding, did require a total of 2 units of packed RBCs, and her anion gap significantly improved, presently off insulin drip. Did receive a significant amount of fluids overnight, and she seems to be doing much per her today, hemodynamically stable. Hemoglobin today is 7.7, her INR is 1.3, did receive vitamin K yesterday, electrolytes are normal her anion gap is down to 8, renal profile is normal with a BUN of 31 creatinine of 0.70. - Exam GENERAL EXAM: Alert, pleasant 66-year-old white female, comfortable in no apparent distress. HEAD: Normocephalic/atraumatic. EYES: Normal reaction of pupils, equal size. Conjunctiva pink, sclera white. NOSE: Clear with pink turbinates. THROAT: No erythema or exudates. NECK: No masses, no JVD, no thyroid enlargement, no adenopathy. CHEST: No chest wall deformity. Symmetrical expansion. LUNGS: Clear breath sounds bilaterally, no crackles or rhonchi or wheezes. CVS: Regular rate and rhythm, normal S1 and S2, no gallops, no murmurs, no rubs ABDOMEN: Soft, nontender. No hepatosplenomegaly, normal bowel sounds, no guarding or rigidity. EXTREMITIES: No clubbing, no edema, no cyanosis, 2+ pulses and upper and lower extremities. MUSCULOSKELETAL: Muscle strength and tone normal SKIN: No rashes CENTRAL NERVOUS SYSTEM: Alert oriented 3, no gross focal neurologic deficit. PSYCHIATRIC: Normal mood affect and mental status examination. Assessment and Plan Assessment: 1. Acute blood loss anemia, secondary to acute GI bleeding, patient presented with several days of dark stools, which changed to maroon colored stools history. #2. Prerenal azotemia secondary to GI bleeding, and DKA #3. Acute hyperkalemia, secondary to acute kidney injury #4. Anion gap metabolic acidosis to continue to DKA #5. History of paroxysmal atrial fibrillation, currently sinus rhythm, on chronic anticoagulation with Coumadin. Admission INR was 2.6, we will give the patient 5 mg of vitamin K in the setting of acute GI bleeding and will hold Coumadin #6. Chronic kidney disease, status post right kidney transplant in 1995 and left kidney transplant in 2009 #7. Diabetes mellitus, with diabetic neuropathy, glaucoma and retinopathy status post laser eye surgery new #8. History of previous GI bleeding , gastric ulcer in 2007 #9. Nicotine dependence, currently in remission #10. Hypertension, hyperlipidemia #11. Hypothyroidism #12. Peripheral vascular disease #13 acute diabetic ketoacidosis, improving significantly over the last 12 hours. Patient is now off insulin drip. Recommendation: Continue present supportive care measures, patient is scheduled to undergo colonoscopy later this afternoon, depending on the findings may consider transferring the patient out of the ICU later this afternoon. We'll continue to follow. Time with Patient: Less than 30 MTDD
--- NOTE | 2017-09-09 15:13 | P.NPCON ---
History of Present Illness - Reason for Consult chronic renal failure - History of Present Illness Reason for consultation. Renal transplant management History of present illness: Patient is a 66-year-old female seen in renal consultation for renal transplant management. Patient received kidney transplant in 1995 which subsequently failed. She received another living related allograft from her son in 2009 at [facility]. Etiology of her kidney disease is diabetic kidney disease. Patient presented to the hospital with rectal bleeding. Her hemoglobin was noted to be low at 6.2 for which she received 2 units of blood transfusion. Hemoglobin 9.0 today. She scheduled for EGD and colonoscopy today. Patient denies use of NSAIDs. Patient was also noted to be in DKA with blood sugars greater than 600 on admission. She is currently maintained on D5 half-normal saline and her blood sugar this afternoon was 85. She is maintained on CellCept 1 g twice daily, prednisone 5 mg once daily and Prograf 1 mg in the morning and 2 mg in the evening. She denies chest pain or shortness of breath. Admits to good urine output. No hematuria or dysuria. Denies chest pain or shortness of breath. Hemodynamically stable. GFR is at baseline. Vital signs are stable. General: The patient appeared well nourished and normally developed. HEENT: Head exam is unremarkable. Neck is without jugular venous distension. LUNGS: Lungs are clear to auscultation and percussion. Breath sounds decreased. HEART: Rate and Rhythm are regular. First and second heart sounds normal. No murmurs, rubs or gallops. ABDOMEN: Abdominal exam reveals normal bowel sounds. Non-tender and non- distended. No evidence of peritonitis. EXTREMITITES: No clubbing, cyanosis, or edema. Past Medical History Past Medical History: Atrial Fibrillation, Diabetes Mellitus, Eye Disorder, GERD /Reflux, Hyperlipidemia, Hypertension, Renal Disease, Thyroid Disorder, Vascular Disorder Additional Past Medical History / Comment(s): IDDM type II, bilateral diabetic neuropathy bilateral feet, PAD, renal failure with kidney transplant twice- prior to transplants was on hemodialysis, anemia, afib once in her life associated with an illness, murmur, PUD-bleeding many years ago, bilateral eyes glaucoma and diabetic retinopathy, frequent UTIs-daily antibiiotic use, hypothyroid. History of Any Multi-Drug Resistant Organisms: None Reported Date of last positivie culture/infection: 01/25/13 MDRO Source:: pt denies every having cdiff Past Surgical History: Appendectomy, Section, Cholecystectomy, Heart Catheterization, Hysterectomy Additional Past Surgical History / Comment(s): kidney transplant twice right in 1995 and left in 2009, corina cataracts with lens implants, laser eye surgery for glaucoma and retinopathy, aortogram 11/25/15, 12/31/15 R LEG FEMORAL POPLITEAL BALOONING /ARTHRECTOMY, COLONOSCOPY, NONFUNCTIONING HEMODIALYSIS SHUNT L ARM, Past Anesthesia/Blood Transfusion Reactions: No Reported Reaction Additional Past Anesthesia/Blood Transfusion Reaction / Comment(s): Pt recieved blood in 1995 without reaction. Smoking Status: Former smoker - Past Family History Father Family Medical History: COPD Additional Family Medical History / Comment(s): . Mother Family Medical History: Cancer Additional Family Medical History / Comment(s): Mother had melanoma Medications and Allergies Home Medications Medication Instructions Recorded Confirmed Type Mycophenolate Mofetil [Cellcept] 1,000 mg PO BID 01/24/15 09/08/17 History Simvastatin [Zocor] 40 mg PO HS 01/24/15 09/08/17 History Warfarin Sodium 4 mg PO SUTUTHSA 01/24/15 09/08/17 History predniSONE 5 mg PO DAILY 01/24/15 09/08/17 History Insulin Detemir [Levemir] 30 unit SQ HS 11/18/15 09/08/17 History Levothyroxine Sodium [Synthroid] 200 mcg PO DAILY 11/18/15 09/08/17 History [place]-3 Fatty Acids/Fish Oil [Fish 1 cap PO DAILY 11/18/15 09/08/17 History Oil 1,000 mg Softgel] Tacrolimus [Prograf] 1 mg PO TID 11/18/15 09/08/17 History Biotin Tab 2 tab PO DAILY 12/30/15 09/08/17 History Cholecalciferol [Vitamin D3] 2,000 unit PO DAILY 12/30/15 09/08/17 History Warfarin Sodium 6 mg PO MOWEFR 12/30/15 09/08/17 History Cranberry 400mg 400 mg PO DAILY 09/08/17 09/08/17 History Insulin Aspart [NovoLOG Flexpen] 3 units SQ AC-BRKFST 09/08/17 09/08/17 History Insulin Aspart [NovoLOG Flexpen] 6 units SQ AC-LUNCH 09/08/17 09/08/17 History Insulin Aspart [NovoLOG Flexpen] 6 units SQ AC-SUPPER 09/08/17 09/08/17 History Lisinopril [Zestril] 10 mg PO HS 09/08/17 09/08/17 History Metoprolol Tartrate [Lopressor] 25 mg PO DAILY 09/08/17 09/08/17 History Allergies Allergy/AdvReac Type Severity Reaction Status Date / Time No Known Allergies Allergy Verified 09/08/17 08:34 Physical Exam Vitals: Vital Signs Temp Pulse Resp BP Pulse Ox 09/09/17 14:00 98.1 F 84 15 178/64 99 09/09/17 13:00 98 F 90 20 164/78 99 09/09/17 12:00 98.3 F 85 23 138/38 100 09/09/17 11:00 85 18 172/68 100 09/09/17 10:00 86 18 167/78 100 09/09/17 09:00 81 17 158/73 98 09/09/17 08:00 98.3 F 85 22 141/65 100 09/09/17 07:00 98.3 F 77 20 109/48 97 09/09/17 06:00 79 11 L 105/53 96 09/09/17 05:00 79 12 123/54 95 09/09/17 04:00 98.7 F 74 22 98/45 95 09/09/17 03:00 76 18 101/48 98 09/09/17 02:00 82 19 98/46 94 L 09/09/17 01:00 76 22 87/46 97 09/09/17 00:00 98.7 F 81 23 110/54 94 L 09/08/17 23:00 84 12 108/47 97 09/08/17 22:03 86 10 L 105/41 97 09/08/17 22:00 86 13 105/41 97 09/08/17 21:00 89 12 115/47 99 09/08/17 20:00 99.1 F 90 16 94/46 98 09/08/17 19:00 82 19 113/50 96 09/08/17 18:00 87 19 121/53 97 09/08/17 17:15 84 18 125/58 97 09/08/17 17:00 98 F 86 28 H 125/58 99 09/08/17 16:00 98 F 87 19 117/55 100 09/08/17 15:45 86 24 117/55 98 09/08/17 15:30 85 18 106/55 97 Intake and Output 09/09/17 09/09/17 09/09/17 06:59 14:59 22:59 Intake Total 678.05 Output Total 0 Balance 678.05 0 Intake: IV 675 D5-0.45% NaCl with KCl 675 20Meq/l 1,000 ml @ 75 mls /hr IV .[id number] [facility] Rx#: [id number] Intake, IV Titration 3.05 Amount Insulin Regular 100 unit 3.05 In Sodium Chloride 0.9% 100 ml @ 0.1 UNITS/KG/HR 5.95 mls/hr IV .[id number] [facility] Rx#:[id number] Output: Urine 0 Other: Voiding Method Toilet Toilet # Voids 1 1 # Bowel Movements 1 Weight 58.9 kg 58.9 kg Results - Lab Results Most recent lab results Calcium 8.5 mg/dL (8.4-10.2) 09/09/17 04:21 Phosphorus 3.1 mg/dL (2.5-4.5) 09/09/17 04:21 Magnesium 2.1 mg/dL (1.6-2.3) 09/09/17 04:21 09/09/17 12:02 09/09/17 04:21 Assessment and Plan Plan: Assessment: 1. Status post living related renal allograft in 2009 at [facility]. GFR at baseline. Donor was her son. 2. Rectal bleeding status post 2 units blood transfusion this admission. Hemoglobin 9.0 this morning. Scheduled for endoscopy today. 3. DKA currently maintained on D5 half normal saline. Improved. 4. Insulin-dependent diabetes mellitus. 5. Benign hypertension. Controlled. Plan: Maintain half-normal saline to be run at 75 mL an hour. Resume immunosuppression - CellCept 1 g twice daily, prednisone 5 mg once daily , Prograf 1 mg in the morning and 2 mg in the evening. Avoid nephrotoxins. Follow-up endoscopy results. Repeat electrolytes in the morning. Thank you for the consultation. I will continue to follow the patient with you during her hospital stay.
--- NOTE | 2017-09-09 15:27 | ECHOF ---
Referral Reason:sob MEASUREMENTS -------- HEIGHT: 162.6 cm WEIGHT: 58.5 kg BP: 147/63 RVIDd: 2.0 cm (< 3.3) IVSd: 1.2 cm (0.6 - 1.1) LVIDd: 4.2 cm (3.9 - 5.3) LVPWd: 1.3 cm (0.6 - 1.1) IVSs: 1.6 cm LVIDs: 2.9 cm LVPWs: 1.6 cm LAESV Index (A-L): 31.64 ml/m Ao Diam: 2.6 cm (2.0 - 3.7) AV Cusp: 1.5 cm (1.5 - 2.6) LA Diam: 3.9 cm (2.7 - 3.8) EPSS: 0.7 cm MV E [place]: 1.64 m/s MV DecT: 271 ms MV A [place]: 0.00 m/s MV E/A Ratio: [id number] RAP: 5.00 mmHg RVSP: 10.60 mmHg MV EF SLOPE: 73.20 mm/s (70 - 150) MV EXCURSION: 1.72 cm (> 18.000) FINDINGS -------- Sinus rhythm. This was a technically good study. The left ventricular size is normal. There is mild concentric left ventricular hypertrophy. Overa ll left ventricular systolic function is normal with, an EF between 55 - 60 %. The right ventricle is normal in size and function. LA is midly dilated 29-33ml/m2. The right atrium is normal in size. Aortic valve is trileaflet and is mildly thickened. There is no evidence of aortic regurgitation. There is no evidence of aortic stenosis. The mitral valve leaflets are mildly thickened. Mild mitral regurgitation is present. Mild tricuspid regurgitation present. Right ventricular systolic pressure is normal at < 35 mmHg. There is no evidence of pulmonary hypertension. Trace/mild (physiologic) pulmonic regurgitation. The aortic root size is normal. Normal inferior vena cava with normal inspiratory collapse consistent with estimated right atrial pre ssure of 5 mmHg. There is no pericardial effusion. CONCLUSIONS -------- 1. Sinus rhythm. 2. This was a technically good study. 3. The left ventricular size is normal. 4. There is mild concentric left ventricular hypertrophy. 5. Overall left ventricular systolic function is normal with, an EF between 55 - 60 %. 6. LA is midly dilated 29-33ml/m2. 7. Aortic valve is trileaflet and is mildly thickened. 8. The mitral valve leaflets are mildly thickened. 9. Mild mitral regurgitation is present. 10. Mild tricuspid regurgitation present. 11. Right ventricular systolic pressure is normal at < 35 mmHg. 12. There is no evidence of pulmonary hypertension. 13. Trace/mild (physiologic) pulmonic regurgitation. 14. The aortic root size is normal. 15. There is no pericardial effusion. [employer]: Devaughn Anderson RDCS
[2017-09-09 17:38] LABS: Glucose,Whole Blood 127 mg/dL (75-99)
[2017-09-09] MEDS ORDERED: PROPOFOL 10 MG/ML 20 ML VIAL IV ONE (19:06)
[2017-09-09] MEDS ORDERED: GLYCOPYRROLATE 0.2 MG/ML 2 ML VIAL ONE (19:06)
[2017-09-09] MEDS ORDERED: IV FLUID CONTINUATION 1,000 ML IV ONE (19:10)
--- NOTE | 2017-09-09 19:54 | P.PCN ---
Date of Procedure: 09/09/17 Procedure(s) Performed: Procedure: Esophagogastroduodenoscopy and biopsy. Total colonoscopy. Preoperative diagnosis: GI bleeding. Postoperative diagnosis: Gastritis and duodenitis and multiple duodenal ulcers in the duodenal bulb and post bulbar area with stigmata of prior bleeding but not bleeding at the time of this exam. Sigmoid diverticulosis with no evidence of active bleeding. Preparation: GoLYTELY prep. Sedation: Was provided by anesthesia. Brief clinical history: The patient is a 66-year-old female with history of renal transplantation 2, colonic diverticulosis, remote peptic ulcer disease more than 10 years ago, atrial fibrillation maintained on warfarin, hypertension , hyperlipidemia presented with intractable nausea vomiting and painless bloody diarrhea. No recent travels. No unusual foods or diet changes no sick contacts. Admission hemoglobin 6.2 receive 2 units of blood current hemoglobin is 7.7. MCV 90. Platelet 302. INR 2.6 received vitamin K presently 1.3. Serum glucose greater than 600. Serum acetone positive. Hemoccult stool positive. Last bloody bowel movement was yesterday. Denies hematemesis. Afebrile. Endoscopic history: No recent EGD possible EGD more than 10 years ago. Colonoscopy approximately 8 years ago out of state to her memory unremarkable. CT abdomen and pelvis in 2015 identified colonic diverticulosis. Procedure: With the patient on her left lateral decubitus position and after informed consent and adequate sedation, I passed the Olympus-GIF 160 video upper endoscope through the cricopharyngeus down the esophagus. There were no evidence of esophagitis or complicated reflux disease. The endoscope was then passed into the stomach which was insufflated with air and inspected in detail including the retroflex view in the cardia. There was some erythema and friability in the antrum but no ulcers, erosions or bleeding. Pyloric channel did not show any ulcers. The duodenal bulb and the immediate post bulbar area showed multiple ulcers ranging in size from 1-3 cm covered with white base with couple of them showing dark spots in the Center but there was no dark protuberances clots or oozing of blood. Descending duodenum appeared healthy with no obvious bleeding or any evidence of gastric outlet obstruction. I obtained biopsies from the antrum then the endoscope was withdrawn and I proceeded with the colonoscopy. Perianal area did not show any fissures or fistulas. There were no masses felt on digital rectal examination. The Olympus CFQ 160L video colonoscope was then inserted in the rectum and the usual fashion and advanced to the cecum. There were multiple diverticular orifices seen scattered in the sigmoid with no evidence of acute diverticulitis or strictures. No evidence of active bleeding. I retroflexed endoscope in the rectum before the endoscope was withdrawn. The patient tolerated the procedure well. Plan: I summarize the findings to the patient and her sister. Will allow clear liquid diet and advance to regular as tolerated. Continue PPI treatment. There is likely that her bleeding is upper GI in origin related to her ulcers also diverticular bleed may have presented and is similarly. I would recommend waiting to restart her anticoagulation if clinically stable required for at least couple weeks which would give these ulcers further time to heal. I will discuss with you and follow with you with interest.
[2017-09-09 20:11] LABS: Glucose,Whole Blood 286 mg/dL (75-99)
[2017-09-09] MEDS: LISINOPRIL 10 MG TAB PO SCH (21:14)
[2017-09-09] MEDS: INSULIN DETEMIR 100 UNIT/ML 10 ML VIAL SQ SCH (21:14)
[2017-09-09] MEDS: TACROLIMUS 1 MG CAP PO SCH (21:14)
[2017-09-09] MEDS: MYCOPHENOLATE MOFETIL 500 MG TAB PO SCH (21:14)
[2017-09-09 22:16] LABS: Glucose,Whole Blood 384 mg/dL (75-99)
[2017-09-09] MEDS: INSULIN ASPART 100 UNIT/ML 1 ML 10 ML VIAL SQ SCH (22:20)
[2017-09-09 23:33] LABS: Glucose,Whole Blood 305 mg/dL (75-99)
[2017-09-10 02:10] LABS: Glucose,Whole Blood 128 mg/dL (75-99)
[2017-09-10 03:48] LABS: Basophils % (A) 1 %; Eosinophils # (A) 0.3 k/uL (0-0.7); Eosinophils % (A) 5 %; HCT 24.9 % (34.0-46.0); HGB 8.1 gm/dL (11.4-16.0); Hypochromasia Moderate; Lymphocytes # (A) 1.1 k/uL (1.0-4.8); Lymphocytes % (A) 16 %; MCH 28.7 pg (25.0-35.0); MCHC 32.6 g/dL (31.0-37.0); MCV 88.1 fL (80.0-100.0); Mean Platelet Volume 6.9; Monocytes # (A) 0.4 k/uL (0-1.0); Monocytes % (A) 6 %; Neutrophils # (A) 4.6 k/uL (1.3-7.7); Neutrophils % (A) 70 %; Platelet Count 301 k/uL (150-450); RBC 2.82 m/uL (3.80-5.40); RDW 15.3 % (11.5-15.5); WBC 6.6 k/uL (3.8-10.6)
[2017-09-10 04:11] LABS: Anion Gap 7 mmol/L; Blood Urea Nitrogen 12 mg/dL (7-17); Calcium 8.7 mg/dL (8.4-10.2); Carbon Dioxide 22 mmol/L (22-30); Chloride 110 mmol/L (98-107); Glucose 86 mg/dL (74-99); Magnesium 1.6 mg/dL (1.6-2.3); Phosphorus 2.3 mg/dL (2.5-4.5); Potassium 4.9 mmol/L (3.5-5.1); Sodium 139 mmol/L (137-145)
[2017-09-10] MEDS ORDERED: SODIUM PHOSPHATE 10 MMOL in SODIUM CHLORIDE 0.9% 250 ML IVPB ONE (05:00)
[2017-09-10] MEDS: MAGNESIUM SULFATE-D5W PMX 1 GM in DEXTROSE/WATER 1 100ML.BAG IVPB SCH ×2 (06:31→08:04)
[2017-09-10] MEDS: LEVOTHYROXINE 100 MCG TAB PO SCH (06:36)
--- NOTE | 2017-09-10 06:57 | P.PN ---
Subjective Progress Note Date: 09/10/17 Principal diagnosis: This is a 66-year-old female with a kidney transplant initially in 1995 and then fail and had a living related from her son in 2009. She was admitted with GI bleed. Yesterday she had a colonoscopy and EGD done and showed Gastritis and duodenitis and multiple duodenal ulcers in the duodenal bulb and post bulbar area with stigmata of prior bleeding but not bleeding at the time of this exam. Sigmoid diverticulosis with no evidence of active bleeding. This morning she is awake alert oriented comfortable denies any abdominal pain no history of GERD. No epigastric discomfort. She had normal bowel movement. She denies any difficulty breathing chest pain dizziness. She has good urine output and creatinine stable History of present illness: Patient is a 66-year-old female seen in renal consultation for renal transplant management. Patient received kidney transplant in 1995 which subsequently failed. She received another living related allograft from her son in 2009 at [facility]. Etiology of her kidney disease is diabetic kidney disease. Patient presented to the hospital with rectal bleeding. Her hemoglobin was noted to be low at 6.2 for which she received 2 units of blood transfusion. Hemoglobin 9.0 today. She scheduled for EGD and colonoscopy today. Patient denies use of NSAIDs. Patient was also noted to be in DKA with blood sugars greater than 600 on admission. She is currently maintained on D5 half-normal saline and her blood sugar this afternoon was 85. She is maintained on CellCept 1 g twice daily, prednisone 5 mg once daily and Prograf 1 mg in the morning and 2 mg in the evening. She denies chest pain or shortness of breath. Admits to good urine output. No hematuria or dysuria. Denies chest pain or shortness of breath. Hemodynamically stable. GFR is at baseline. Objective - Vital Signs Vital signs: Vital Signs Temp 98.3 F 09/10/17 04:00 Pulse 79 09/10/17 06:30 Resp 16 09/10/17 06:30 BP 117/52 09/10/17 06:00 Pulse Ox 98 09/10/17 06:30 Intake & Output 09/09/17 09/09/17 09/10/17 06:59 18:59 06:59 Intake Total 3427.173 7006 Output Total 600 0 0 Balance 538.217 0 1550 Weight 58.9 kg 58.9 kg 60.5 kg Intake: IV 1125 1550 D5-0.45% NaCl with KCl 1125 900 20Meq/l 1,000 ml @ 75 mls /hr IV .[id number] [facility] Rx#: [id number] Magnesium Sulfate-D5w Pmx 100 1 gm In Dextrose/Water 1 100ml.bag @ 100 mls/hr IVPB Q1H [facility] Rx#: [id number] Sodium Phosphate 10 mmol 250 In Sodium Chloride 0.9% 250 ml @ 125 mls/hr IVPB ONCE ONE Rx#:[id number] Intake, IV Titration 13.217 Amount Insulin Regular 100 unit 13.217 In Sodium Chloride 0.9% 100 ml @ 0.1 UNITS/KG/HR 5.95 mls/hr IV .[id number] [facility] Rx#:[id number] Output: Urine 600 0 0 Other: Voiding Method Toilet Toilet Toilet # Voids 1 1 0 # Bowel Movements 1 1 On examination awake alert oriented comfortable A chin exam no JVP neck is supple no facial asymmetry Lungs clear to auscultation with good air entry bilaterally Heart sounds are unremarkable for any murmur rub gallop normal sinus rhythm Abdomen soft nontender nondistended Extremity exam was no edema Awake alert oriented comfortable - Labs CBC & Chem 7: 09/10/17 03:23 09/10/17 03:23 Labs: Abnormal Lab Results - Last 24 Hours (Table) 09/08/17 09/09/17 09/09/17 Range/Units 09:08 07:01 09:32 RBC (3.80-5.40) m/uL Hgb (11.4-16.0) gm/dL Hct (34.0-46.0) % Chloride (98-107) mmol/L POC Glucose (mg/dL) 107 H 72 L (75-99) mg/dL Hemoglobin A1c 8.9 H (4.0-6.0) % Phosphorus (2.5-4.5) mg/dL Troponin I (0.000-0.034) ng/mL 09/09/17 09/09/17 09/09/17 Range/Units 10:08 10:59 12:02 RBC 3.28 L (3.80-5.40) m/uL Hgb 9.0 L (11.4-16.0) gm/dL Hct 29.0 L (34.0-46.0) % Chloride (98-107) mmol/L POC Glucose (mg/dL) 64 L 111 H (75-99) mg/dL Hemoglobin A1c (4.0-6.0) % Phosphorus (2.5-4.5) mg/dL Troponin I (0.000-0.034) ng/mL 09/09/17 09/09/17 09/09/17 Range/Units 13:15 17:37 18:24 RBC (3.80-5.40) m/uL Hgb (11.4-16.0) gm/dL Hct (34.0-46.0) % Chloride (98-107) mmol/L POC Glucose (mg/dL) 127 H (75-99) mg/dL Hemoglobin A1c (4.0-6.0) % Phosphorus (2.5-4.5) mg/dL Troponin I 0.656 H* 0.555 H* (0.000-0.034) ng/mL 09/09/17 09/09/17 09/09/17 Range/Units 20:09 22:15 23:31 RBC (3.80-5.40) m/uL Hgb (11.4-16.0) gm/dL Hct (34.0-46.0) % Chloride (98-107) mmol/L POC Glucose (mg/dL) 286 H 384 H 305 H (75-99) mg/dL Hemoglobin A1c (4.0-6.0) % Phosphorus (2.5-4.5) mg/dL Troponin I (0.000-0.034) ng/mL 09/10/17 09/10/17 09/10/17 Range/Units 02:07 03:23 03:23 RBC 2.82 L (3.80-5.40) m/uL Hgb 8.1 L (11.4-16.0) gm/dL Hct 24.9 L (34.0-46.0) % Chloride (98-107) mmol/L POC Glucose (mg/dL) 128 H (75-99) mg/dL Hemoglobin A1c (4.0-6.0) % Phosphorus (2.5-4.5) mg/dL Troponin I 0.339 H* (0.000-0.034) ng/mL 09/10/17 Range/Units 03:23 RBC (3.80-5.40) m/uL Hgb (11.4-16.0) gm/dL Hct (34.0-46.0) % Chloride 110 H (98-107) mmol/L POC Glucose (mg/dL) (75-99) mg/dL Hemoglobin A1c (4.0-6.0) % Phosphorus 2.3 L (2.5-4.5) mg/dL Troponin I (0.000-0.034) ng/mL Assessment and Plan Assessment: Impression 1. Living donor kidney transplant 2009 with stable creatinine 0.6. 2. on immunosuppressive medications, Prograf 1 mg in the morning and 20 evening CellCept 1 g twice a day and prednisone 5 mg daily. 3. GI bleed from, Gastritis and duodenitis and multiple duodenal ulcers in the duodenal bulb and post bulbar area with stigmata of prior bleeding but not bleeding at the time of this exam. Sigmoid diverticulosis with no evidence of active bleeding. 4. Anemia with hemoglobin of 8.1 status post transfusion. 5. Low phosphorus possibly hyperparathyroidism. Plan-. 1. Resume prednisone 5 mg a day. 2. Check iron saturation. 3. Monitor lites been creatinine Prograf level and CBC 4. Advance diet as per GI
[2017-09-10] MEDS ORDERED: INSULIN ASPART 100 UNIT/ML 1 ML 10 ML VIAL SQ SCH (07:30)
[2017-09-10] MEDS: INSULIN ASPART 100 UNIT/ML 1 ML 10 ML VIAL SQ SCH ×4 (08:11→21:49)
[2017-09-10 08:17] LABS: Glucose,Whole Blood 95 mg/dL (75-99)
[2017-09-10] MEDS: predniSONE 5 MG TAB PO SCH (09:33)
[2017-09-10] MEDS: PANTOPRAZOLE 40 MG/10 ML VIAL IV SCH ×2 (09:33→21:48)
[2017-09-10] MEDS: TACROLIMUS 1 MG CAP PO SCH ×2 (09:34→21:49)
[2017-09-10] MEDS: MYCOPHENOLATE MOFETIL 500 MG TAB PO SCH ×2 (09:35→21:49)
[2017-09-10] MEDS: D5-0.45% NACL WITH KCL 20MEQ/L 1,000 ML IV SCH ×2 (11:41→23:35)
--- NOTE | 2017-09-10 11:47 | P.PN ---
Subjective Progress Note Date: 09/10/17 Principal diagnosis: Acute GI bleeding Mrs. Osorio 66-year-old white female patient of Dr. Levin who presented to the emergency department on 08/29/2017 for evaluation of a few days' history of dark stools. She states last night she noticed the stool started changing color , and became more maroon in appearance. Patient felt more fatigued and weak. She does have history of previous GI bleeding in 2007, and the EGD at that time identified a bleeding gastric ulcer. Patient is on Coumadin for history of paroxysmal atrial fibrillation, currently in sinus rhythm. Patient does have iron deficiency anemia and she is on iron supplements, and initially she was not alarmed at her dark stools relating it to her iron supplements. Other medical history includes diabetes mellitus, chronic kidney disease with history of 2 kidney transplants, one in 1995, and 2009. Her kidney transplants were from living donors. Past medical history also includes hypertension, hyperlipidemia, hypothyroidism, neuropathy, and patient is a former smoker. Lab work showed a hemoglobin of 6.2, INR of 2.6, sodium of 1:30, potassium 6.8, CO2 of 17, BUN 60, creatinine is 0.87. Serum glucose was 636, with positive serum acetone level. Troponin cardiac enzymes were negative 1, lipase was within normal limits at 183. Stool occult blood was positive. She was given 2 L of IV bolus of 0.9 normal saline in the emergency room, receiving 2 units of packed red blood cells, she was placed in the intensive care. DKA protocol sling effusion has been started. Patient was reevaluated today on 09/10/2017, and I saw her yesterday on 09/09/2017 , however my progress note seems to be on the reports, but is not on the documents. Patient underwent GI workup, and the workup revealed gastritis and duodenitis with multiple duodenal ulcers in the duodenal bulb, there was no active bleeding at the time of the procedure, there was also evidence of sigmoid diverticulosis with no evidence of active bleeding. Patient is presently doing well, asymptomatic, no active bleeding is noted clinically, patient denies any melena or hematemesis, her hemoglobin is holding nicely, she received a total of 2 units of packed RBCs since admission. Hemoglobin today is 8.1. Objective - Vital Signs Vital signs: Vital Signs Temp 97.8 F 09/10/17 08:00 Pulse 81 09/10/17 11:00 Resp 18 09/10/17 11:00 BP 163/68 09/10/17 11:00 Pulse Ox 97 09/10/17 11:00 Intake & Output 09/09/17 09/10/17 09/10/17 18:59 06:59 18:59 Intake Total 1550 450 Output Total 0 0 1200 Balance 0 1550 -750 Weight 58.9 kg 60.5 kg 60.5 kg Intake: IV 1550 450 D5-0.45% NaCl with KCl 900 225 20Meq/l 1,000 ml @ 75 mls /hr IV .[id number] [facility] Rx#: [id number] Magnesium Sulfate-D5w Pmx 100 100 1 gm In Dextrose/Water 1 100ml.bag @ 100 mls/hr IVPB Q1H [facility] Rx#: [id number] Sodium Phosphate 10 mmol 250 125 In Sodium Chloride 0.9% 250 ml @ 125 mls/hr IVPB ONCE ONE Rx#:[id number] Output: Urine 0 0 700 Urine/Stool Mix 500 Other: Voiding Method Toilet Toilet Toilet # Voids 1 0 0 # Bowel Movements 1 1 1 - Exam Physical Exam: Revealed a 66-year-old female in no distress. Head: Atraumatic, normocephalic. HEENT:[Neck is supple.] [No neck masses.] [No thyromegaly.] [No JVD.] Chest: [Clear throughout, no crackles, no rhonchi, no wheezes.] Cardiac Exam: [Normal S1 and S2, no S3 gallop, no murmur.] Abdomen: [Soft, nontender, no megaly, no rebound, no guarding, normal bowel sounds.] Extremities: [No clubbing, no edema, no cyanosis.] Neurological Exam: [No focal neurologic deficit.] - Labs CBC & Chem 7: 09/10/17 03:23 09/10/17 03:23 Labs: Abnormal Lab Results - Last 24 Hours (Table) 09/09/17 09/09/17 09/09/17 Range/Units 12:02 13:15 17:37 RBC 3.28 L (3.80-5.40) m/uL Hgb 9.0 L (11.4-16.0) gm/dL Hct 29.0 L (34.0-46.0) % Chloride (98-107) mmol/L POC Glucose (mg/dL) 127 H (75-99) mg/dL Phosphorus (2.5-4.5) mg/dL Troponin I 0.656 H* (0.000-0.034) ng/mL 09/09/17 09/09/17 09/09/17 Range/Units 18:24 20:09 22:15 RBC (3.80-5.40) m/uL Hgb (11.4-16.0) gm/dL Hct (34.0-46.0) % Chloride (98-107) mmol/L POC Glucose (mg/dL) 286 H 384 H (75-99) mg/dL Phosphorus (2.5-4.5) mg/dL Troponin I 0.555 H* (0.000-0.034) ng/mL 09/09/17 09/10/17 09/10/17 Range/Units 23:31 02:07 03:23 RBC (3.80-5.40) m/uL Hgb (11.4-16.0) gm/dL Hct (34.0-46.0) % Chloride (98-107) mmol/L POC Glucose (mg/dL) 305 H 128 H (75-99) mg/dL Phosphorus (2.5-4.5) mg/dL Troponin I 0.339 H* (0.000-0.034) ng/mL 09/10/17 09/10/17 Range/Units 03:23 03:23 RBC 2.82 L (3.80-5.40) m/uL Hgb 8.1 L (11.4-16.0) gm/dL Hct 24.9 L (34.0-46.0) % Chloride 110 H (98-107) mmol/L POC Glucose (mg/dL) (75-99) mg/dL Phosphorus 2.3 L (2.5-4.5) mg/dL Troponin I (0.000-0.034) ng/mL Assessment and Plan Assessment: #1. Acute blood loss anemia, secondary to acute GI bleeding, the source seems to be secondary to duodenitis, duodenal ulcers, and gastritis. #2. Prerenal azotemia secondary to GI bleeding, and DKA, resolved. #3. Acute hyperkalemia, secondary to acute kidney injury , resolved #4. Anion gap metabolic acidosis to continue to DKA #5. History of paroxysmal atrial fibrillation, currently sinus rhythm, on chronic anticoagulation with Coumadin. Admission INR was 2.6, we will give the patient 5 mg of vitamin K in the setting of acute GI bleeding and will hold Coumadin #6. Chronic kidney disease, status post right kidney transplant in 1995 and left kidney transplant in 2009 #7. Diabetes mellitus, with diabetic neuropathy, glaucoma and retinopathy status post laser eye surgery new #8. History of previous GI bleeding , gastric ulcer in 2007 #9. Nicotine dependence, currently in remission #10. Hypertension, hyperlipidemia #11. Hypothyroidism #12. Peripheral vascular disease Recommendation: Continue present treatment plan, patient can be safely transferred out of the ICU to a medical floor, possible discharge planning in the next 24 hours. Time with Patient: Less than 30
[2017-09-10 11:53] LABS: Glucose,Whole Blood 129 mg/dL (75-99)
[2017-09-10] MEDS: METOPROLOL TARTRATE 5 MG/5 ML VIAL IVP PRN (11:56)
[2017-09-10 12:25] LABS: Iron Saturation 15.38 (12.00-45.00)
--- NOTE | 2017-09-10 12:44 | PN ---
PROGRESS NOTE The patient is a 66-year-old pleasant white female admitted to hospital with GI bleed and severe symptomatic anemia. She had an EGD and colonoscopy by Dr. Turcios and was noted to have an upper endoscopy that revealed mild gastritis, duodenitis and multiple small duodenal ulcers in the duodenal bulb with no active bleeding. Colonoscopy revealed sigmoid diverticulosis. The patient this morning is doing better. She denies any symptoms. On a clear liquid diet, tolerating well and requesting for diet to be advanced. PHYSICAL EXAMINATION: On examination, she appears comfortable, in no apparent distress. Vital signs are stable. Blood pressure is 156/78, pulse rate 80, temperature 98. HEENT EXAMINATION: Unremarkable. Conjunctivae pink. Sclerae anicteric. Oral cavity no lesions. NECK: No JVD or lymph node enlargement. Chest was clear to auscultation. HEART: Regular rate and rhythm. ABDOMEN: Soft. Bowel sounds are positive. No organomegaly. EXTREMITIES: No pedal edema. SKIN: No rashes. NEURO: She is alert and oriented x3. No focal deficits. LABS: Labs from today, WBC 6.6, hemoglobin 8.1, platelets are normal. BUN is 12 and creatinine is 0.6. Troponin is 0.3. IMPRESSION: Acute gastrointestinal bleed with a hemoglobin of 6.2, requiring blood transfusion, presently stable at 8.1 g/dL. She is status post EGD and colonoscopy by Dr. Turcios yesterday which revealed multiple small duodenal ulcers with no active bleeding. Presently on Protonix 40 mg daily and doing well. RECOMMENDATION: 1. Advance diet as tolerated. 2. Continue with Protonix 40 mg twice daily. 3. CBC in the morning and will follow the patient closely. Thank you for this consultation. MMODL / IJN: [id number] /
[2017-09-10] MEDS: INSULIN REGULAR 100 UNIT in SODIUM CHLORIDE 0.9% 100 ML IV SCH (13:55)
--- NOTE | 2017-09-10 13:56 | P.PN ---
Subjective Progress Note Date: 09/10/17 Principal diagnosis: GI bleed Patient continued to be hemodynamically stable no major events reported by nursing staff patient was safely transferred to the general medical floor after evaluation by critical care and GI specialist Objective - Vital Signs Vital signs: Vital Signs Temp 97.8 F 09/10/17 08:00 Pulse 70 09/10/17 12:00 Resp 18 09/10/17 12:00 BP 166/88 09/10/17 12:14 Pulse Ox 97 09/10/17 12:00 Intake & Output 09/09/17 09/10/17 09/10/17 18:59 06:59 18:59 Intake Total 1550 525 Output Total 0 0 1200 Balance 0 1550 -675 Weight 58.9 kg 60.5 kg 60.5 kg Intake: IV 1550 525 D5-0.45% NaCl with KCl 900 300 20Meq/l 1,000 ml @ 75 mls /hr IV .[id number] [facility] Rx#: [id number] Magnesium Sulfate-D5w Pmx 100 100 1 gm In Dextrose/Water 1 100ml.bag @ 100 mls/hr IVPB Q1H [facility] Rx#: [id number] Sodium Phosphate 10 mmol 250 125 In Sodium Chloride 0.9% 250 ml @ 125 mls/hr IVPB ONCE ONE Rx#:[id number] Output: Urine 0 0 700 Urine/Stool Mix 500 Other: Voiding Method Toilet Toilet Toilet # Voids 1 0 0 # Bowel Movements 1 1 1 - Exam Gen.: in stated age, no acute distress Heart: Normal S1-S2 Lungs: Clear to auscultation bilaterally Abdomen: Soft, no tenderness, positive bowel sounds in all 4 quadrant no guarding or rebound Skin: No new rash Psych: Alert and oriented 3 Neuro: No focal deficit - Labs CBC & Chem 7: 09/10/17 03:23 09/10/17 03:23 Labs: Abnormal Lab Results - Last 24 Hours (Table) 09/09/17 09/09/17 09/09/17 Range/Units 13:15 17:37 18:24 RBC (3.80-5.40) m/uL Hgb (11.4-16.0) gm/dL Hct (34.0-46.0) % Chloride (98-107) mmol/L POC Glucose (mg/dL) 127 H (75-99) mg/dL Phosphorus (2.5-4.5) mg/dL Troponin I 0.656 H* 0.555 H* (0.000-0.034) ng/mL 09/09/17 09/09/17 09/09/17 Range/Units 20:09 22:15 23:31 RBC (3.80-5.40) m/uL Hgb (11.4-16.0) gm/dL Hct (34.0-46.0) % Chloride (98-107) mmol/L POC Glucose (mg/dL) 286 H 384 H 305 H (75-99) mg/dL Phosphorus (2.5-4.5) mg/dL Troponin I (0.000-0.034) ng/mL 09/10/17 09/10/17 09/10/17 Range/Units 02:07 03:23 03:23 RBC 2.82 L (3.80-5.40) m/uL Hgb 8.1 L (11.4-16.0) gm/dL Hct 24.9 L (34.0-46.0) % Chloride (98-107) mmol/L POC Glucose (mg/dL) 128 H (75-99) mg/dL Phosphorus (2.5-4.5) mg/dL Troponin I 0.339 H* (0.000-0.034) ng/mL 09/10/17 09/10/17 Range/Units 03:23 11:51 RBC (3.80-5.40) m/uL Hgb (11.4-16.0) gm/dL Hct (34.0-46.0) % Chloride 110 H (98-107) mmol/L POC Glucose (mg/dL) 129 H (75-99) mg/dL Phosphorus 2.3 L (2.5-4.5) mg/dL Troponin I (0.000-0.034) ng/mL Assessment and Plan Plan: 1. Acute GI bleed likely related to duodenal ulcer with duodenitis evidenced by recent EGD. 2. Atrial fibrillation and patient has been on Coumadin as a maintenance drug. 3. Recent DKA with history of diabetes. 4. History of kidney transplant 2 with the most recent in 2009. 5. Hypertension. 6. Chronic anemia. Patient seems to be improving with stable hemoglobin and stable vital signs we would like to continue Protonix 40 mg IV push twice daily and switched to oral regimen per GI recommendation I would like also to continue holding Coumadin at this point and resume it based on clinical progress. Continue with heart rate controlling agent which seems to be in the fifth control. Continue with insulin sliding scale and home regimen and encourage oral intake. Would continue antirejection medication as scheduled at home and follow up on kidney function closely during this hospital stay. Plan discussed with the patient at length
[2017-09-10 17:14] LABS: Glucose,Whole Blood 350 mg/dL (75-99)
[2017-09-10 21:01] LABS: Glucose,Whole Blood 320 mg/dL (75-99)
[2017-09-10] MEDS: LISINOPRIL 10 MG TAB PO SCH (21:49)
[2017-09-10] MEDS: INSULIN DETEMIR 100 UNIT/ML 10 ML VIAL SQ SCH (22:00)
[2017-09-11 00:54] LABS: Glucose,Whole Blood 147 mg/dL (75-99)
[2017-09-11 04:58] LABS: Glucose,Whole Blood 127 mg/dL (75-99)
[2017-09-11] MEDS: LEVOTHYROXINE 100 MCG TAB PO SCH (06:25)
[2017-09-11 07:37] VITALS: BP 126/88; PULSE 91; RESP 16; TEMP 97.8
[2017-09-11 07:44] LABS: Glucose,Whole Blood 115 mg/dL (75-99)
[2017-09-11] MEDS: INSULIN ASPART 100 UNIT/ML 1 ML 10 ML VIAL SQ SCH ×2 (07:57→13:20)
[2017-09-11] MEDS: MYCOPHENOLATE MOFETIL 500 MG TAB PO SCH (07:59)
[2017-09-11] MEDS: TACROLIMUS 1 MG CAP PO SCH (08:00)
[2017-09-11] MEDS: predniSONE 5 MG TAB PO SCH (08:00)
[2017-09-11 08:33] LABS: Basophils % (A) 0 %; Eosinophils # (A) 0.3 k/uL (0-0.7); Eosinophils % (A) 5 %; HGB 8.7 gm/dL (11.4-16.0); Hypochromasia Moderate; Lymphocytes # (A) 1.7 k/uL (1.0-4.8); Lymphocytes % (A) 27 %; MCH 27.8 pg (25.0-35.0); MCV 89.6 fL (80.0-100.0); Mean Platelet Volume 6.9; Monocytes # (A) 0.5 k/uL (0-1.0); Monocytes % (A) 8 %; Neutrophils # (A) 3.5 k/uL (1.3-7.7); Neutrophils % (A) 57 %; Platelet Count 347 k/uL (150-450); RBC 3.13 m/uL (3.80-5.40); RDW 15.4 % (11.5-15.5); WBC 6.1 k/uL (3.8-10.6)
[2017-09-11 08:56] LABS: Calcium 9.2 mg/dL (8.4-10.2); Magnesium 1.7 mg/dL (1.6-2.3); Phosphorus 3.6 mg/dL (2.5-4.5); Potassium 5.3 mmol/L (3.5-5.1)
[2017-09-11] MEDS ORDERED: PANTOPRAZOLE 40 MG TABLET PO SCH (09:00)
--- NOTE | 2017-09-11 12:09 | PN ---
PROGRESS NOTE REQUESTING PHYSICIAN: Dr. Mcguire The patient is a 66-year-old pleasant white female with history of kidney transplant on anti rejection medications, admitted to the hospital with acute upper GI bleed. She had several episodes of nausea, vomiting. She underwent an upper endoscopy by Dr. Turcios 2 days ago and was noted to have multiple small duodenal ulcers in the duodenal bulb. She is on IV Protonix 40 mg twice daily. She is doing better. Abdominal pain has resolved. No further episodes of nausea, vomiting. PHYSICAL EXAMINATION: She appears comfortable, in no apparent distress. VITAL SIGNS: Stable. Blood pressure is 133/86, pulse rate 88 per minute and afebrile. HEENT examination unremarkable. Conjunctivae pink. Sclerae anicteric. Oral cavity no lesions. Neck no jugular venous distention or lymph node enlargement. Chest was clear to auscultation. HEART: Regular rate and rhythm. ABDOMEN: Soft. Bowel sounds are positive. No organomegaly. Extremities no pedal edema. Skin no rashes. Neuro: She is alert and oriented x3. No focal deficits. LAB: The labs from this morning hemoglobin 7.7, WBC 6.1, and platelets are normal. IMPRESSION: 1. Acute upper GI bleed, status post EGD [address] Turcios and was noted to have small duodenal bulb ulcers. The presently on Protonix 40 mg daily and doing well. 2. History of kidney transplant on anti rejection medications. BUN and creatinine are stable. RECOMMENDATIONS: 1. Advance diet as tolerated. 2. Continue Protonix 40 mg daily for 2 months. 3. Await biopsy results. 4. Patient can be discharged home today with outpatient follow up as needed. 5. Thank you for this consultation. MMODL / IJN: [id number] /
[2017-09-11 12:27] LABS: Glucose,Whole Blood 338 mg/dL (75-99)
--- NOTE | 2017-09-11 12:47 | P.DS ---
Providers Date of admission: 09/08/17 12:23 Attending physician: Lizzie Christianson MD Consults: 09/08/17 12:23 Consult Physician Stat Consulting Provider: Fabi Banerjee Consult Reason/Comments: Intensive care management Do you want consulting provider notified?: Already Contacted Consult Physician Urgent Consulting Provider: Hoa Holland Consult Reason/Comments: GI bleed with anemia Do you want consulting provider notified?: Yes 09/09/17 12:40 Consult Physician Routine Consulting Provider: Romina Waite Consult Reason/Comments: increased troponin Do you want consulting provider notified?: Yes 09/09/17 14:50 Consult Physician Routine Consulting Provider: Jhony Horton Consult Reason/Comments: hx kidney transplant Do you want consulting provider notified?: Already Contacted Primary care physician: [facility] Course: This is 66 years old female who presented to the hospital with GI bleed patient was taken to the surgical suite for endoscopy which turned to be positive for duodenal ulcer and duodenitis patient was started on Protonix drip which was switched to IV twice daily and later on discharged to oral medication same frequency patient counseled regarding medication adherence and close follow-up with primary care physician also patient asked to follow-up with GI specialist regarding biopsies result and patient to be continued on her insulin regimen and antirejection medication for history of kidney transplant ration potassium was slightly elevated at the time of the discharge and felt to be related to fluid infusion as was instructed by GI specialist where patient was receiving extra potassium during her fluid infusion and other reason was lisinopril patient asked to follow-up with her primary care physician and prescription was provided to check on her CBC and metabolic on Tuesday and to see her family physician within 3-4 days patient was discharged in stable condition after clearance from GI specialist and patient was in stable condition. Discharge process 35 minutes Patient Condition at Discharge: Serious Plan - Discharge Summary Discharge Rx Participant: Yes New Discharge Prescriptions: New Pantoprazole [Protonix] 1 tab PO BID #60 tablet.dr No Action Simvastatin [Zocor] 40 mg PO HS Warfarin Sodium 4 mg PO SUTUTHSA Mycophenolate Mofetil [Cellcept] 1,000 mg PO BID predniSONE 5 mg PO DAILY Tacrolimus [Prograf] 1 mg PO TID Levothyroxine Sodium [Synthroid] 200 mcg PO DAILY Insulin Detemir [Levemir] 30 unit SQ HS [place]-3 Fatty Acids/Fish Oil [Fish Oil 1,000 mg Softgel] 1 cap PO DAILY Warfarin Sodium 6 mg PO MOWEFR Biotin Tab 2 tab PO DAILY Cholecalciferol [Vitamin D3] 2,000 unit PO DAILY Metoprolol Tartrate [Lopressor] 25 mg PO DAILY Lisinopril [Zestril] 10 mg PO HS Insulin Aspart [NovoLOG Flexpen] 3 units SQ AC-BRKFST Insulin Aspart [NovoLOG Flexpen] 6 units SQ AC-LUNCH Insulin Aspart [NovoLOG Flexpen] 6 units SQ AC-SUPPER Cranberry 400mg 400 mg PO DAILY Discharge Medication List Mycophenolate Mofetil [Cellcept] 1,000 mg PO BID 01/24/15 [History] Simvastatin [Zocor] 40 mg PO HS 01/24/15 [History] Warfarin Sodium 4 mg PO SUTUTHSA 01/24/15 [History] predniSONE 5 mg PO DAILY 01/24/15 [History] Insulin Detemir [Levemir] 30 unit SQ HS 11/18/15 [History] Levothyroxine Sodium [Synthroid] 200 mcg PO DAILY 11/18/15 [History] Canova-3 Fatty Acids/Fish Oil [Fish Oil 1,000 mg Softgel] 1 cap PO DAILY [History] Tacrolimus [Prograf] 1 mg PO TID 11/18/15 [History] Biotin Tab 2 tab PO DAILY 12/30/15 [History] Cholecalciferol [Vitamin D3] 2,000 unit PO DAILY 12/30/15 [History] Warfarin Sodium 6 mg PO MOWEFR 12/30/15 [History] Cranberry 400mg 400 mg PO DAILY 09/08/17 [History] Insulin Aspart [NovoLOG Flexpen] 3 units SQ AC-BRKFST 09/08/17 [History] Insulin Aspart [NovoLOG Flexpen] 6 units SQ AC-LUNCH 09/08/17 [History] Insulin Aspart [NovoLOG Flexpen] 6 units SQ AC-SUPPER 09/08/17 [History] Lisinopril [Zestril] 10 mg PO HS 09/08/17 [History] Metoprolol Tartrate [Lopressor] 25 mg PO DAILY 09/08/17 [History] Pantoprazole [Protonix] 1 tab PO BID #60 tablet. 09/11/17 [Rx] Follow up Appointment(s)/Referral(s): Quynh Mcguire MD [Primary Care Provider] - 1-2 days
[2017-09-11] MEDS: D5-0.45% NACL WITH KCL 20MEQ/L 1,000 ML IV SCH (14:46)
--- NOTE | 2017-09-15 09:26 | CDI ---
Last Revision, March 2017 Documentation Clarification Form Date: 09/15/17 From: Mercedes Giang Phone: If you have a question regarding this query, please contact Yecenia Duque at [phone] between 8am and 5pm. Admit Date: 09/08/2017 12:23:00 PM Patient Name: Alivia Osorio Visit Number: [id number] Discharge Date: 09/11/17 ATTENTION: The Clinical Documentation Specialists (CDI) and [facility] Coding Staff appreciate your assistance in clarifying documentation. Please respond to the clarification below the line at the bottom and electronically sign. The CDI & [facility] Coding staff will review the response and follow-up if needed. Please note: Queries are made part of the Legal Health Record. If you have any questions, please contact the author of this message via ITS. Dr. Hoa Holland Duodenal ulcer is documented in the discharge summary and 09/09 and 09/10 progress notes. Patient history/risk factors Patient has a history of peptic ulcers and was admitted for GI bleed. Clinical Indicators: GI bleed Vital Signs: T. 97.0, P. 77, R. 20, BP 116/51 EGD: Gastritis and duodenitis and multiple duodenal ulcers in the duodenal bulb and post bulbar area with stigmata of prior bleeding but not bleeding at the time of the exam. Treatment: IV Protonix In your professional opinion, can you please clarify the acuity of the duodenal ulcers? Acute Chronic Other, please specify Unable to determine acute duodenal ulcer Figueroa KELLY
== END 2017-09-11 14:40 | disposition home or self-care (01) | DRG 377 ==
LOC: EC 08:30 → 6ICU 12:23 → 5MS5E 09-10 12:29
PROVIDERS: ADMIT Internal Medicine; ATTEND Internal Medicine
PROC: 30233N1 Transfusion of Nonautologous Red Blood Cells into Peripheral Vein, Percutaneous Approach (ICD-10-PCS; 2017-09-08)
PROC: 0DB98ZX Excision of Duodenum, Via Natural or Artificial Opening Endoscopic, Diagnostic (ICD-10-PCS; principal; 2017-09-09 08:35)
PROC: 0DJD8ZZ Inspection of Lower Intestinal Tract, Via Natural or Artificial Opening Endoscopic (ICD-10-PCS; 2017-09-09 08:35)
DX: K26.0 Acute duodenal ulcer with hemorrhage (principal); E11.10 Type 2 diabetes mellitus with ketoacidosis without coma; D62 Acute posthemorrhagic anemia; Z94.0 Kidney transplant status; K29.81 Duodenitis with bleeding; E03.9 Hypothyroidism, unspecified; E11.319 Type 2 diabetes mellitus with unspecified diabetic retinopathy without macular edema; E11.40 Type 2 diabetes mellitus with diabetic neuropathy, unspecified; E11.51 Type 2 diabetes mellitus with diabetic peripheral angiopathy without gangrene; E78.5 Hyperlipidemia, unspecified; E87.5 Hyperkalemia; E21.3 Hyperparathyroidism, unspecified; E11.39 Type 2 diabetes mellitus with other diabetic ophthalmic complication; H40.9 Unspecified glaucoma; I25.2 Old myocardial infarction; I44.0 Atrioventricular block, first degree; I48.0 Paroxysmal atrial fibrillation; F17.201 Nicotine dependence, unspecified, in remission; K21.9 Gastro-esophageal reflux disease without esophagitis; K57.30 Diverticulosis of large intestine without perforation or abscess without bleeding; R01.1 Cardiac murmur, unspecified; R00.1 Bradycardia, unspecified; R77.9 Abnormality of plasma protein, unspecified; I10 Essential (primary) hypertension; E86.9 Volume depletion, unspecified; Z79.01 Long term (current) use of anticoagulants; Z79.4 Long term (current) use of insulin; Z79.52 Long term (current) use of systemic steroids; Z79.899 Other long term (current) drug therapy; Z79.890 Hormone replacement therapy; Z87.11 Personal history of peptic ulcer disease; Z90.710 Acquired absence of both cervix and uterus; Z87.440 Personal history of urinary (tract) infections; Z98.42 Cataract extraction status, left eye; Z98.41 Cataract extraction status, right eye; Z96.1 Presence of intraocular lens; Z90.49 Acquired absence of other specified parts of digestive tract; K29.70 Gastritis, unspecified, without bleeding; Z80.8 Family history of malignant neoplasm of other organs or systems; Z82.5 Family history of asthma and other chronic lower respiratory diseases
CPT/HCPCS: 36415; 43239; 45378; 73501; 74022; 80048; 80053; 81001; 82009; 82272; 82550; 82553; 83036; 83540; 83550; 83605; 83690; 83735; 84100; 84484; 85025; 85027; 85610; 85730; 86850; 86900; 86901; 86920; 88305; 93005; 93306; 94640; 96361; 96374; 99285

== ENCOUNTER → 2017-12-22 | Outpatient (CLI) | payer MEDICARE, BC ==
[~2017-12-22] MED LIST: DENOSUMAB 60 MG/ML 1 ML SYRINGE SQ ONE
[2017-12-22 13:39] VITALS: BP 156/53; PULSE 67; RESP 16; TEMP 98.3
== END | disposition home or self-care (01) ==
LOC: PROCWHC3 13:18
PROVIDERS: ATTEND Family Medicine
DX: M80.059A Age-related osteoporosis with current pathological fracture, unspecified femur, initial encounter for fracture (principal)
CPT/HCPCS: 96372; J0897

== ENCOUNTER → 2018-12-12 | Day surgery (SDC) | payer MEDICARE, BC ==
[2018-12-07 11:15] VITALS: BMI 22.3
[~2018-12-12] MED LIST changes: -DENOSUMAB 60 MG/ML 1 ML SYRINGE SQ ONE; +FERROUS SULFATE 325 MG TAB PO SCH; +INSULIN LISPRO (For Pump) 100 UNIT/ML VIAL SQ-PUMP SCH; +LIDOCAINE 1% INJ 10MG/ML (20 ML MDV) ONE; +METOPROLOL TARTRATE 25 MG TAB PO SCH; +MYCOPHENOLATE MOFETIL 500 MG TAB PO SCH; +NON-FORMULARY DRUG (Biotin [Biotin] 5 MG) PO SCH; +NON-FORMULARY DRUG (Levothyroxine Sodium [Synthroid] 200 MCG) PO SCH; +NON-FORMULARY DRUG (Simvastatin 80 MG) PO SCH; +PANTOPRAZOLE 40 MG TABLET PO PRN; +PROPOFOL 10 MG/ML 20 ML VIAL IV ONE; +SODIUM CHLORIDE 0.9% 1,000 ML IV SCH; +SODIUM CHLORIDE 0.9% 500 ML 500 ML IV ONE; +TACROLIMUS 1 MG CAP PO SCH; +WARFARIN SODIUM 4 MG PO SCH; +WARFARIN SODIUM 6 MG PO SCH; +fentaNYL (PF) 50 MCG/ML 2 ML AMP ONE; +predniSONE 5 MG TAB PO SCH
[2018-12-12 07:45] VITALS: TEMP 97.9
[2018-12-12 07:48] LABS: Glucose,Whole Blood 179 mg/dL (75-99)
[2018-12-12 08:00] LABS: Calcium 9.5 mg/dL (8.4-10.2); Potassium 4.4 mmol/L (3.5-5.1)
[2018-12-12 08:02] LABS: Prothrombin Time 10.7 sec (9.0-12.0)
[2018-12-12] MEDS: BENZOCAINE SPRAY 1 CAN MUCOUS MEM ONE ×2 (08:50→08:52)
--- NOTE | 2018-12-12 09:32 | CE ---
CARDIAC ELECTROPHYSIOLOGY REPORT CARDIOVERSION PROCEDURE NOTE: INDICATION: Atrial fibrillation. PROCEDURE: After explaining the procedure to the patient, its risks and the complications, blood pressure, heart rate, O2 saturation was monitored. After performing transesophageal echocardiogram and obtaining sedated state, a synchronized biphasic cardioversion using 150 joules was unsuccessful in restoring normal sinus rhythm. Subsequently, cardioversion with 200 joules was successful in restoring sinus mechanism. There was no immediate complication. MMODL / IJN: [id number] /
--- NOTE | 2018-12-12 09:32 | ECHOT ---
TRANSESOPHAGEAL ECHOCARDIOGRAM INDICATION: Evaluation of left atrial appendage. PROCEDURE: After explaining the procedure to the patient, its risks and the complications, blood pressure, heart rate, O2 saturation was monitored. The throat was sprayed with Cetacaine. She received sedation per anesthesia department. The probe was introduced in the esophagus without difficulty. Images were obtained. Following that, the probe was removed. There was no immediate complication. FINDINGS: Left atrial size is dilated. Left atrial appendage is normal. Spontaneous contrast was noted. The aortic valve revealed fibrocalcific change of the aortic cusp with preserved opening. Mitral anulus calcification was noted. The left ventricular size is normal. There is mild global hypokinesis. Estimated ejection fraction 45% to 50%. Descending thoracic aorta revealed mild to moderate atherosclerotic changes. No pericardial effusion was noted. Contrast bubble study revealed no evidence of shunting across the interatrial septum. Doppler pulse wave and color Doppler obtained revealed mild mitral and tricuspid regurgitation with no evidence of shunting across the interatrial septum. Mild pulmonic regurgitation was noted. CONCLUSION: 1. Dilated left atrium with spontaneous contrast. 2. Normal left ventricular size with mild global hypokinesis. 3. Aortic sclerosis with no evident stenosis. 4. Mitral anulus calcification with mild mitral regurgitation. 5. Mild tricuspid and pulmonic regurgitation. 6. Mild to moderate atherosclerotic changes of the descending thoracic aorta. 7. No shunting across the interatrial septum. MMODL / IJN: [id number] /
[2018-12-12 10:01] LABS: Glucose,Whole Blood 242 mg/dL (75-99)
[2018-12-12 10:39] VITALS: RESP 18
[2018-12-12 10:47] VITALS: BP 141/65; PULSE 73
== END | disposition home or self-care (01) ==
LOC: CATHCVL 07:16
PROVIDERS: ATTEND Internal Medicine Interventional Cardiology
DX: I08.3 Combined rheumatic disorders of mitral, aortic and tricuspid valves (principal); I70.0 Atherosclerosis of aorta; I37.1 Nonrheumatic pulmonary valve insufficiency; I48.3 Typical atrial flutter; I48.0 Paroxysmal atrial fibrillation; Z79.01 Long term (current) use of anticoagulants; E78.2 Mixed hyperlipidemia; E11.51 Type 2 diabetes mellitus with diabetic peripheral angiopathy without gangrene; Z72.0 Tobacco use; Z94.0 Kidney transplant status; I10 Essential (primary) hypertension; Z79.890 Hormone replacement therapy; Z79.4 Long term (current) use of insulin; Z79.52 Long term (current) use of systemic steroids; Z79.899 Other long term (current) drug therapy
CPT/HCPCS: 93312; 93320; 93325; 92960; 80048; 85610; J2001; J3010; J2704